=== PATIENT | male | born 1965 | race Caucasian/White ===

== ENCOUNTER 2023-05-04 12:03 | Outpatient (REF) | payer OTHER, SELFPAY ==
[2023-05-04 13:21] LABS: Alanine Aminotransferase 18 U/L (0-40); Albumin Level 3.6 g/dL (3.5-5.0); Alkaline Phosphatase 116 U/L (39-117); Anion Gap 14 (12-20); Aspartate Amino Transferase 26 U/L (5-37); Bilirubin Total 0.9 mg/dL (0.0-1.0); Blood Urea Nitrogen 15 mg/dL (9-16); Calcium 8.9 mg/dL (8.4-10.2); Carbon Dioxide 22 mmol/L (22-29); Chloride 102 mmol/L (96-108); Cholesterol 143 mg/dL; Estimated Glomerular Filt Rate > 60; Glucose Fasting 93 mg/dL (60-99); HDL Cholesterol 33 mg/dL; LDL Cholesterol Calculated 93 mg/dl; Potassium 4.2 mmol/L (3.3-5.1); Sodium 134 mmol/L (135-145); Total Protein 8.6 g/dL (6.5-8.0); Triglycerides 85 mg/dL
[2023-05-04 13:24] LABS: Estimated Average Glucose 100 mg/dL; Hemoglobin A1c % 5.1 %
[2023-05-04 13:36] LABS: Thyroid Stimulating Hormone 0.75 uIU/mL (0.32-4.0)
== END 2023-05-04 12:04 | disposition home or self-care (01) ==
LOC: HO.LAB 12:03
PROVIDERS: PCP Internal Medicine; Visit Provider Internal Medicine
DX: R73.9 Hyperglycemia, unspecified (principal); E03.9 Hypothyroidism, unspecified; N28.9 Disorder of kidney and ureter, unspecified; E78.5 Hyperlipidemia, unspecified
CPT/HCPCS: 36415; 80053; 80061; 83036; 84443

== ENCOUNTER 2023-07-19 11:31 | Outpatient (AMB) | payer OTHER, SELFPAY ==
[2023-07-19 11:33] VITALS: BP 180/120; PULSE 60; O2SAT 96; BMI 39.5
--- NOTE | 2023-07-19 11:33 | MHC.PC.OV ---
Vital Signs 07/19/23 11:33 Height 5 ft 7 in Weight 252 lb BMI 39.5 BP 180/120 H Blood Pressure Location Lt brachial Position Sitting Pulse 60 Pulse Source Pulse Oximeter Pulse Oximetry (%) 96 Oxygen Delivery Method Room Air Intake Visit Reasons: cellulitis Circuits Engineer: Not Required per policy Allergies No Known Allergies Allergy (Verified 07/19/23 11:34) Medication List - Last Reconciled 07/20/23 by Heri Greenfield MD hydrochlorothiazide 12.5 mg PO DAILY Tobacco use date assessed: 05/18/23 Dental Screening Dental Screen Date: 07/19/23 Did you have a dental visit in the last 12 months?: No Did you have a dental problem in the last 6 months where you did not have access to dental care?: No Was dental information given to patient?: Patient declined HPI cellulitis HPI Details HTN on no rx PFSH Surgical History No pertinent past surgical history Family History Father CVD (cardiovascular disease) Mother Diabetes Family/Other Asthma Seizure disorder CAD (coronary artery disease) Social History Housing: House Alcohol intake: never Patient Tobacco Use Status: Never used Tobacco e-Cigarette/Vaping Use: Never Used Second Hand Smoke Exposure: No service: No Current occupational status: disabled Cognitive needs: Yes (wheelchair) Hearing needs: No Vision needs: Yes (glasses) Questionnaire PHQ-9 Over the last 2 weeks, how often have you been bothered by any of the following problems? 1. Little interest or pleasure in doing things: not at all 2. Feeling down, depressed, or hopeless: not at all 3. Trouble falling or staying asleep, or sleeping too much: not at all 4. Feeling tired or having little energy: not at all 5. Poor appetite or overeating: not at all 6. Feeling bad about yourself - or that you are a failure or have let yourself or your family down: not at all 7. Trouble concentrating on things, such as reading the newspaper or watching television: not at all 8. Moving or speaking so slowly that other people could have noticed. Or the opposite - being so fidgety or restless that you have been moving around a lot more than usual: not at all 9. Thoughts that you would be better off or of hurting yourself in some way: not at all Total score: 0 Depression Screening Interpretation: Negative Source: Developed by Drs. Padilla Phan, Deanna Tobin, Samuel Platt and colleagues, with an educational isabel from [employer]. Thrive Questionnaire Date Thrive assessed: 05/18/23 Currently or been in a relationship where the following occur: no concerns reported AUDIT C Alcohol Use Questionnaire (AUDIT-C) 1. How often do you have a drink containing alcohol?: Never Total Score: 0 RENE-7 AMB Questionnaire RENE-7 Date RENE - 7 assessed: 05/18/23 Source: Developed by Drs. Padilla Phan, Deanna Tobin, Samuel Platt and colleagues, with an educational isabel from [employer]. Review of Systems Const Denies chills, Denies headache(s) and Denies weight loss ENT Denies headache(s) Card Denies chest pain, Denies syncope, Denies irregular heart rhythm and Denies dyspnea Resp Denies chest congestion, Denies cough and Denies dyspnea GI Denies abdominal pain, Denies change in stool character, Denies nausea and Denies vomiting Musc Denies deformity and Denies joint swelling Neuro Denies syncope and Denies headache(s) Physical exam (Primary Care) Vital Signs: Last Vital Signs Pulse 60 07/19/23 11:33 BP 180/120 H 07/19/23 11:33 Pulse Ox 96 07/19/23 11:33 Oxygen Delivery Method Room Air 07/19/23 11:33 BMI result Body Mass Index 39.5 Tobacco/Smoking Status: Tobacco use Status Tobacco use date assessed 05/18/23 07/19/23 11:39 Patient Tobacco Use Status Never used Tobacco 07/19/23 11:39 e-Cigarette/Vaping Use Never Used 07/19/23 11:39 PHQ-9: PHQ-9 Score PHQ-9: Total score 0 07/20/23 12:16 Depression Screening Interpretation: Negative Thrive Assessment: Date of Thrive Assessment Date Thrive assessed 05/18/23 07/19/23 11:39 Currently or been in a relationship where the following occur: no concerns reported Const General: cooperative, comfortable and no acute distress Resp Effort & Inspection: normal respiratory effort Auscultation: clear to auscultation bilaterally Percussion: percussion normal Cardio Jugular venous distension: no JVD Rate: regular rate Rhythm: regular rhythm GI Inspection: Yes normal to inspection Assessment and Plan Assessment & Plan (1) Hypertension: Code(s): I10 - Essential (primary) hypertension Plan: start rx Medications: New hydrochlorothiazide 12.5 mg PO DAILY 90 tabs 3RF Coding Level of Care Code Est Pt Level 3 (22436) Diagnoses Hypertension I10
== END 2023-07-19 11:47 | disposition home or self-care (01) ==
PROVIDERS: PCP Internal Medicine; Visit Provider Internal Medicine
DX: I10 Essential (primary) hypertension (principal)
CPT/HCPCS: 99213

== ENCOUNTER 2023-10-19 13:11 | Outpatient (AMB) | payer OTHER, SELFPAY ==
[2023-10-19 13:13] VITALS: BP 180/109; PULSE 73; O2SAT 96; BMI 41.5
--- NOTE | 2023-10-19 13:13 | A.OFFPC_ITS ---
Vital Signs 10/19/23 13:13 Height 5 ft 7 in Weight 265 lb BMI 41.5 BP 180/109 H Blood Pressure Location Lt brachial Position Sitting Pulse 73 Pulse Source Pulse Oximeter Pulse Oximetry (%) 96 Oxygen Delivery Method Room Air Intake Visit Reasons: 3mth f/u Instructional Technology Director Required: No Sulky Driver: Not Required per policy Accompanied by: Self / Same As Patient Allergies No Known Allergies Allergy (Verified 10/19/23 13:13) Medication List - Last Reconciled 10/19/23 by Heri Greenfield MD hydrochlorothiazide 12.5 mg PO DAILY Tobacco use date assessed: 05/18/23 Dental Screening Dental Screen Date: 10/19/23 Did you have a dental visit in the last 12 months?: Yes Did you have a dental problem in the last 6 months where you did not have access to dental care?: No Was dental information given to patient?: Patient has dentist HPI 3mth f/u 2 HPI Details BP high; compliant PFSH Surgical History No pertinent past surgical history Family History Father CVD (cardiovascular disease) Mother Diabetes Family/Other Asthma Seizure disorder CAD (coronary artery disease) Social History Housing: House Alcohol intake: never Patient Tobacco Use Status: Never used Tobacco e-Cigarette/Vaping Use: Never Used Second Hand Smoke Exposure: No service: No Current occupational status: disabled Cognitive needs: Yes (wheelchair) Hearing needs: No Vision needs: Yes (glasses) Questionnaire Thrive Questionnaire Date Thrive assessed: 05/18/23 RENE-7 AMB Questionnaire RENE-7 Date RENE - 7 assessed: 05/18/23 Source: Developed by Drs. Padilla Phan, Deanna Tobin, Samuel Platt and colleagues, with an educational isabel from [employer]. Review of Systems Const Denies chills, Denies headache(s) and Denies weight loss ENT Denies headache(s) Card Denies chest pain, Denies syncope, Denies irregular heart rhythm and Denies dyspnea Resp Denies chest congestion, Denies cough and Denies dyspnea GI Denies abdominal pain, Denies change in stool character, Denies nausea and Denies vomiting Musc Denies deformity and Denies joint swelling Neuro Denies syncope and Denies headache(s) Physical exam (Primary Care) Vital Signs: Last Vital Signs Pulse 73 10/19/23 13:13 BP 180/109 H 10/19/23 13:13 Pulse Ox 96 10/19/23 13:13 Oxygen Delivery Method Room Air 10/19/23 13:13 BMI result Body Mass Index 41.5 Tobacco/Smoking Status: Tobacco use Status Tobacco use date assessed 05/18/23 10/19/23 13:14 Patient Tobacco Use Status Never used Tobacco 10/19/23 13:14 e-Cigarette/Vaping Use Never Used 10/19/23 13:14 Thrive Assessment: Date of Thrive Assessment Date Thrive assessed 05/18/23 10/19/23 13:14 Const General: cooperative, comfortable, no acute distress and alert Neck Neck: Yes no lymphadenopathy Thyroid: Thyroid normal Resp Effort & Inspection: normal respiratory effort Auscultation: clear to auscultation bilaterally Percussion: percussion normal Cardio Jugular venous distension: no JVD Palpation: normal PMI Rate: regular rate Rhythm: regular rhythm Heart sounds: S1 normal heart sound present and S2 normal heart sound present GI Inspection: Yes normal to inspection Palpation (GI): No hepatosplenomegaly present Skin General skin exam: no rashes or lesions noted Extrem General: Yes no clubbing, cyanosis or edema Assessment and Plan Assessment & Plan (1) Hypertension: Code(s): I10 - Essential (primary) hypertension Plan: add rx Medications: New lisinopril 10 mg PO DAILY 60 tabs 8RF Coding Level of Care Code Est Pt Level 3 (10075) Diagnoses Hypertension I10
== END 2023-10-19 13:29 | disposition home or self-care (01) ==
PROVIDERS: PCP Internal Medicine; Visit Provider Internal Medicine
DX: I10 Essential (primary) hypertension (principal)
CPT/HCPCS: 99213

== ENCOUNTER 2024-01-18 12:49 | Outpatient (AMB) | payer OTHER, SELFPAY ==
[2024-01-18 12:51] VITALS: BP 186/120; PULSE 86; O2SAT 88; BMI 45.4
--- NOTE | 2024-01-18 12:51 | A.OFFPC_ITS ---
Vital Signs 01/18/24 12:51 Height 5 ft 7 in Weight 290 lb BMI 45.4 BP 186/120 H Blood Pressure Location Lt brachial Position Sitting Pulse 86 Pulse Source Pulse Oximeter Pulse Oximetry (%) 88 L Oxygen Delivery Method Room Air Intake Visit Reasons: 3mth f/u General Internist And Physician Leader Required: No Contractor Field Hauling: Not Required per policy Accompanied by: Self / Same As Patient Allergies No Known Allergies Allergy (Verified 01/18/24 12:51) Medication List - Last Reconciled 01/18/24 by Heri Greenfield MD hydrochlorothiazide 12.5 mg PO DAILY lisinopril 10 mg PO DAILY Tobacco use date assessed: 01/18/24 Dental Screening Dental Screen Date: 01/18/24 Did you have a dental visit in the last 12 months?: Yes Did you have a dental problem in the last 6 months where you did not have access to dental care?: No Was dental information given to patient?: Patient has dentist HPI 3mth f/u HPI Details HTN; stopped his rx a month ago PFSH Surgical History No pertinent past surgical history Family History Father CVD (cardiovascular disease) Mother Diabetes Family/Other Asthma Seizure disorder CAD (coronary artery disease) Social History Housing: House Alcohol intake: never Patient Tobacco Use Status: Never used Tobacco e-Cigarette/Vaping Use: Never Used Second Hand Smoke Exposure: No service: No Current occupational status: disabled Cognitive needs: Yes (wheelchair) Hearing needs: No Vision needs: Yes (glasses) Questionnaire PHQ-9 Over the last 2 weeks, how often have you been bothered by any of the following problems? 1. Little interest or pleasure in doing things: not at all 2. Feeling down, depressed, or hopeless: not at all 3. Trouble falling or staying asleep, or sleeping too much: not at all 4. Feeling tired or having little energy: not at all 5. Poor appetite or overeating: not at all 6. Feeling bad about yourself - or that you are a failure or have let yourself or your family down: not at all 7. Trouble concentrating on things, such as reading the newspaper or watching television: not at all 8. Moving or speaking so slowly that other people could have noticed. Or the opposite - being so fidgety or restless that you have been moving around a lot more than usual: not at all 9. Thoughts that you would be better off or of hurting yourself in some way: not at all Total score: 0 Depression Screening Interpretation: Negative Depression Screening Done: Yes [id number] - PHQ-9 Billing: Yes Source: Developed by Drs. Padilla Phan, Deanna Tobin, Samuel Platt and colleagues, with an educational isabel from [employer]. Thrive Questionnaire Date Thrive assessed: 01/18/24 I am a: Patient What is your living situation today?: I have a steady place to live Within the past 12 months, did the food you bought not last and you didn't have the money to get more?: Never true Within the past 12 months, did you worry whether your food would run out before you got money to buy more?: Never true Do you have trouble paying for medicines?: No Do you have trouble getting transportation to medical appointments?: No Do you have trouble paying your heating and electricity bill?: No Do you have trouble taking care of your child, family member or friend?: No Do you have trouble with day-to-day activities such as bathing, preparing meals, shopping, managing finances, etc.?: No Are you currently unemployed and looking for a job?: No Are you interested in more education?: No Please select the resources that you would like help with: None THRIVE Score: 0 AUDIT C Alcohol Use Questionnaire (AUDIT-C) 1. How often do you have a drink containing alcohol?: Never Total Score: 0 RENE-7 AMB Questionnaire RENE-7 Date RENE - 7 assessed: 01/18/24 Feeling nervous, anxious, or on edge: 0 = Not at all Not being able to stop or control worryin = Not at all Worrying too much about different things: 0 = Not at all Trouble relaxin = Not at all Being so restless that it is hard to sit still: 0 = Not at all Becoming easily annoyed or irritable: 0 = Not at all Feeling afraid as if something awful might happen: 0 = Not at all Total RENE-7 score (0-4 normal; 5-9 mild; 10-14 moderate; 15-21 severe): 0 Source: Developed by Drs. Padilla Phan, Deanna Tobin, Samuel Platt and colleagues, with an educational isabel from [employer]. RENE-7 Assessment Billing RENE-7 Assessment Tool: RENE-7 Assessment 41208 Review of Systems Const Denies chills, Denies headache(s) and Denies weight loss ENT Denies headache(s) Card Denies chest pain, Denies syncope, Denies irregular heart rhythm and Denies dyspnea Resp Denies chest congestion, Denies cough and Denies dyspnea GI Denies abdominal pain, Denies change in stool character, Denies nausea and Denies vomiting Musc Denies deformity and Denies joint swelling Neuro Denies syncope and Denies headache(s) Physical exam (Primary Care) Vital Signs: Last Vital Signs Pulse 86 01/18/24 12:51 BP 186/120 H 01/18/24 12:51 Pulse Ox 88 L 01/18/24 12:51 Oxygen Delivery Method Room Air 01/18/24 12:51 BMI result Body Mass Index 45.4 Tobacco/Smoking Status: Tobacco use Status Tobacco use date assessed 01/18/24 01/18/24 12:52 Patient Tobacco Use Status Never used Tobacco 01/18/24 12:52 e-Cigarette/Vaping Use Never Used 01/18/24 12:52 PHQ-9: PHQ-9 Score PHQ-9: Total score 0 01/18/24 12:52 Depression Screening Interpretation: Negative Thrive Assessment: Date of Thrive Assessment Date Thrive assessed 01/18/24 01/18/24 12:52 Const General: cooperative, comfortable, no acute distress and alert Neck Neck: Yes no lymphadenopathy Thyroid: Thyroid normal Resp Effort & Inspection: normal respiratory effort Auscultation: clear to auscultation bilaterally Percussion: percussion normal Cardio Jugular venous distension: no JVD Palpation: normal PMI Rate: regular rate Rhythm: regular rhythm Heart sounds: S1 normal heart sound present and S2 normal heart sound present GI Inspection: Yes normal to inspection Palpation (GI): No hepatosplenomegaly present Skin General skin exam: no rashes or lesions noted Extrem General: Yes no clubbing, cyanosis or edema Assessment and Plan Assessment & Plan (1) Hypertension: Code(s): I10 - Essential (primary) hypertension Plan: restart rx and f/u in 2 weeks Medications: Refilled hydrochlorothiazide 12.5 mg PO DAILY 90 tabs 3RF lisinopril 10 mg PO DAILY 60 tabs 8RF Coding Level of Care Code Est Pt Level 3 (88817) Diagnoses Hypertension I10 Additional Codes RENE-7 Assessment Billing - RENE-7 Assessment Tool: RENE-7 Assessment 94401 ([id number])
== END 2024-01-18 13:09 | disposition home or self-care (01) ==
PROVIDERS: PCP Internal Medicine; Visit Provider Internal Medicine
DX: I10 Essential (primary) hypertension (principal); E66.01 Morbid (severe) obesity due to excess calories; Z68.42 Body mass index [BMI] 45.0-49.9, adult
CPT/HCPCS: 99213

== ENCOUNTER 2024-06-06 12:34 | Outpatient (AMB) | payer OTHER, SELFPAY ==
--- NOTE | 2024-06-06 12:49 | MHC.PC.OV ---
Vital Signs 06/06/24 12:50 Height 5 ft 7 in Weight 270 lb 2 oz BMI 42.3 BP 144/100 H Blood Pressure Location Lt brachial Position Sitting Pulse 55 Pulse Source Pulse Oximeter Pulse Oximetry (%) 99 Oxygen Delivery Method Room Air Intake Visit Reasons: PE Intake Note: Patient is here today for a physical. Leather Fitter Required: No Accompanied by: Self / Same As Patient Allergies No Known Allergies Allergy (Verified 06/06/24 12:50) Medication List - Last Reconciled 06/06/24 by Heri Greenfield MD hydrochlorothiazide 12.5 mg PO DAILY lisinopril 10 mg PO DAILY lisinopril 20 mg PO DAILY silver sulfadiazine 1% (Silvadene) 1 appl topical BID Tobacco use date assessed: 01/18/24 Dental Screening Dental Screen Date: 01/18/24 HPI PE HPI Details N on rx PFSH Surgical History No pertinent past surgical history Family History Father CVD (cardiovascular disease) Mother Diabetes Family/Other Asthma Seizure disorder CAD (coronary artery disease) Social History Housing: House Alcohol intake: never Patient Tobacco Use Status: Never used Tobacco e-Cigarette/Vaping Use: Never Used Second Hand Smoke Exposure: No service: No Current occupational status: disabled Cognitive needs: Yes (wheelchair) Hearing needs: No Vision needs: Yes (glasses) Questionnaire Thrive Questionnaire Date Thrive assessed: 01/18/24 RENE-7 AMB Questionnaire RENE-7 Date RENE - 7 assessed: 01/18/24 Source: Developed by Drs. Padilla Phan, Deanna Tobin, Samuel Platt and colleagues, with an educational isabel from [employer]. Review of Systems Const Denies chills, Denies fatigue, Denies headache(s) and Denies weight loss Eyes Denies change in vision, Denies diplopia and Denies eye pain ENT Denies vertigo, Denies dizziness, Denies headache(s) and Denies nasal discharge Card Denies chest pain, Denies rapid heart rate and Denies dyspnea on exertion Resp Denies chest congestion, Denies cough, Denies pain with cough and Denies dyspnea on exertion GI Denies abdominal pain, Denies hematochezia and Denies change in bowel habits Musc Denies myalgias, Denies arthralgias and Denies joint swelling Skin/Breast Denies lesions and Denies unusual bruising Neuro Denies vertigo, Denies dizziness, Denies headache(s) and Denies focal weakness Endo Denies fatigue Physical exam (Primary Care) Vital Signs: Last Vital Signs Pulse 55 06/06/24 12:50 BP 144/100 H 06/06/24 12:50 Pulse Ox 99 06/06/24 12:50 Oxygen Delivery Method Room Air 06/06/24 12:50 BMI result Body Mass Index 42.3 Tobacco/Smoking Status: Tobacco use Status Tobacco use date assessed 01/18/24 06/06/24 12:51 Patient Tobacco Use Status Never used Tobacco 06/06/24 12:51 e-Cigarette/Vaping Use Never Used 06/06/24 12:51 Thrive Assessment: Date of Thrive Assessment Date Thrive assessed 01/18/24 06/06/24 12:51 Const General: cooperative, healthy appearing and no acute distress Orientation/consciousness: oriented to person, oriented to place and oriented to time HENMT Head: Yes normal to inspection, Yes normocephalic and Yes atraumatic Mouth: Normal oral and palatal mucosa present and tongue normal Throat: Yes posterior oropharynx normal and Yes uvula midline Eyes General: appearance normal, both eyes and all related structures Neck Neck: Yes normal visual inspection, Yes full ROM and Yes no lymphadenopathy Thyroid: Thyroid normal Carotids: normal carotid upstroke Chest Chest palpation & inspection: normal inspection of the chest Resp Effort & Inspection: normal respiratory effort and able to speak in complete sentences Auscultation: clear to auscultation bilaterally Cardio Jugular venous distension: no JVD Palpation: normal PMI Rate: regular rate Rhythm: regular rhythm Heart sounds: S1 normal heart sound present and S2 normal heart sound present GI Inspection: Yes normal to inspection Palpation (GI): Soft to palpation and No hepatosplenomegaly present Auscultation: normal bowel sounds General: Yes no CVA tenderness Back/Spine/Pelvis Back: no CVA tenderness Skin General skin exam: no rashes or lesions noted Neuro General: oriented to person, oriented to place and oriented to time Extrem General: Yes normal to inspection and Yes full ROM Assessment and Plan Assessment & Plan (1) Physical exam: Code(s): Z00.00 - Encounter for general adult medical examination without abnormal findings Plan: do labs (2) Hypertension: Code(s): I10 - Essential (primary) hypertension Plan: increase rx Orders: Orders Lipid Panel Today Z13.220 - Encounter for screening for lipoid disorders Thyroid Stimulating Hormone Today Z13.29 - Encounter for screening for other suspected endocrine disorder Complete Blood Count Auto Diff Today Z13.0 - Encounter for screening for diseases of the blood and blood-forming organs and certain disorders involving the immune mechanism Comprehensive [place]. Panel Fast Today Z13.9 - Encounter for screening, unspecified Medications: New lisinopril 20 mg PO DAILY 90 tabs 3RF silver sulfadiazine 1% (Silvadene) apply a 1.5 mm thickness 1 appl topical BID 50 grams 3RF Coding Level of Care Code Est Pt Prev Care 40-64y(92626) Diagnoses Physical exam Z00.00 Hypertension I10
[2024-06-06 12:50] VITALS: BP 144/100; PULSE 55; O2SAT 99; BMI 42.3
== END 2024-06-06 13:03 | disposition home or self-care (01) ==
PROVIDERS: PCP Internal Medicine; Visit Provider Internal Medicine
DX: Z00.00 Encounter for general adult medical examination without abnormal findings (principal); I10 Essential (primary) hypertension
CPT/HCPCS: 99396

== ENCOUNTER 2024-07-08 13:25 | Outpatient (AMB) | payer OTHER, SELFPAY ==
[2024-07-08 13:26] VITALS: BP 148/82; PULSE 79; O2SAT 98; BMI 42.6
--- NOTE | 2024-07-08 13:26 | A.OFFPC_ITS ---
Vital Signs 07/08/24 13:26 Height 5 ft 7 in Weight 272 lb BMI 42.6 BP 148/82 H Blood Pressure Location Lt brachial Position Sitting Pulse 79 Pulse Source Pulse Oximeter Pulse Oximetry (%) 98 Oxygen Delivery Method Room Air Intake Visit Reasons: 1mth f/u Allergies No Known Allergies Allergy (Verified 07/08/24 13:26) Medication List - Last Reconciled 07/08/24 by Heri Greenfield MD hydrochlorothiazide 12.5 mg PO DAILY lisinopril 20 mg PO DAILY Tobacco use date assessed: 01/18/24 Dental Screening Dental Screen Date: 01/18/24 HPI 1mth f/u HPI Details HTN on Rx; compliant; doing well PFSH Surgical History No pertinent past surgical history Family History Father CVD (cardiovascular disease) Mother Diabetes Family/Other Asthma Seizure disorder CAD (coronary artery disease) Social History Housing: House Alcohol intake: never Patient Tobacco Use Status: Never used Tobacco e-Cigarette/Vaping Use: Never Used Second Hand Smoke Exposure: No service: No Current occupational status: disabled Cognitive needs: Yes (wheelchair) Hearing needs: No Vision needs: Yes (glasses) Questionnaire PHQ-9 Over the last 2 weeks, how often have you been bothered by any of the following problems? 1. Little interest or pleasure in doing things: not at all 2. Feeling down, depressed, or hopeless: not at all 3. Trouble falling or staying asleep, or sleeping too much: not at all 4. Feeling tired or having little energy: not at all 5. Poor appetite or overeating: not at all 6. Feeling bad about yourself - or that you are a failure or have let yourself or your family down: not at all 7. Trouble concentrating on things, such as reading the newspaper or watching television: not at all 8. Moving or speaking so slowly that other people could have noticed. Or the opposite - being so fidgety or restless that you have been moving around a lot more than usual: not at all 9. Thoughts that you would be better off or of hurting yourself in some way: not at all Total score: 0 Depression Screening Interpretation: Negative Depression Screening Done: Yes 18421 - PHQ-9 Billing: Yes Source: Developed by Drs. Padilla Phan, Deanna Tobin, Samuel Platt and colleagues, with an educational isabel from [employer]. Thrive Questionnaire Date Thrive assessed: 01/18/24 AUDIT C Alcohol Use Questionnaire (AUDIT-C) 1. How often do you have a drink containing alcohol?: Never Total Score: 0 RENE-7 AMB Questionnaire RENE-7 Date RENE - 7 assessed: 01/18/24 Source: Developed by Drs. Padilla Phan, Deanna Tobin, Samuel Platt and colleagues, with an educational isabel from [employer]. Review of Systems Const Denies chills, Denies headache(s) and Denies weight loss ENT Denies headache(s) Card Denies chest pain, Denies syncope, Denies irregular heart rhythm and Denies dy spnea Resp Denies chest congestion, Denies cough and Denies dyspnea GI Denies abdominal pain, Denies change in stool character, Denies nausea and Emanuel es vomiting Musc Denies deformity and Denies joint swelling Neuro Denies syncope and Denies headache(s) Physical exam (Primary Care) Vital Signs: Last Vital Signs Pulse 79 07/08/24 13:26 BP 148/82 H 07/08/24 13:26 Pulse Ox 98 07/08/24 13:26 Oxygen Delivery Method Room Air 07/08/24 13:26 BMI result Body Mass Index 42.6 Tobacco/Smoking Status: Tobacco use Status Tobacco use date assessed 01/18/24 07/08/24 13:26 Patient Tobacco Use Status Never used Tobacco 07/08/24 13:26 e-Cigarette/Vaping Use Never Used 07/08/24 13:26 PHQ-9: PHQ-9 Score PHQ-9: Total score 0 07/08/24 13:33 Depression Screening Interpretation: Negative Thrive Assessment: Date of Thrive Assessment Date Thrive assessed 01/18/24 07/08/24 13:26 Const General: cooperative, comfortable, no acute distress and alert Neck Neck: Yes no lymphadenopathy Thyroid: Thyroid normal Resp Effort & Inspection: normal respiratory effort Auscultation: clear to auscultation bilaterally Percussion: percussion normal Cardio Jugular venous distension: no JVD Palpation: normal PMI Rate: regular rate Rhythm: regular rhythm Heart sounds: S1 normal heart sound present and S2 normal heart sound present GI Inspection: Yes normal to inspection Palpation (GI): No hepatosplenomegaly present Skin General skin exam: no rashes or lesions noted Extrem General: Yes no clubbing, cyanosis or edema Assessment and Plan Assessment & Plan (1) Hypertension: Code(s): I10 - Essential (primary) hypertension Plan: stable; same rx Coding Level of Care Code Est Pt Level 3 (89222) Diagnoses Hypertension I10
== END 2024-07-08 13:50 | disposition home or self-care (01) ==
PROVIDERS: PCP Internal Medicine; Visit Provider Internal Medicine
DX: I10 Essential (primary) hypertension (principal)
CPT/HCPCS: 99213

== ENCOUNTER 2024-10-08 13:16 | Outpatient (AMB) | payer OTHER, SELFPAY ==
[2024-10-08 13:17] VITALS: BP 168/92; PULSE 68; O2SAT 95; BMI 46.2
--- NOTE | 2024-10-08 13:17 | A.OFFPC_ITS ---
Vital Signs 10/08/24 13:17 Height 5 ft 7 in Weight 295 lb BMI 46.2 BP 168/92 H Blood Pressure Location Lt brachial Position Sitting Pulse 68 Pulse Source Pulse Oximeter Pulse Oximetry (%) 95 Oxygen Delivery Method Room Air Intake Visit Reasons: 3 month f/u Allergies No Known Allergies Allergy (Verified 10/08/24 13:18) Tobacco use date assessed: 01/18/24 Dental Screening Dental Screen Date: 01/18/24 HPI 3 month f/u HPI Details hypertension; non-compliant with meds [facility] Surgical History No pertinent past surgical history Family History Father CVD (cardiovascular disease) Mother Diabetes Family/Other Asthma Seizure disorder CAD (coronary artery disease) Social History Housing: House Alcohol intake: never Patient Tobacco Use Status: Never used Tobacco Tobacco use type: Cigarette e-Cigarette/Vaping Use: Never Used Second Hand Smoke Exposure: No service: No Current occupational status: disabled Cognitive needs: Yes (wheelchair) Hearing needs: No Vision needs: Yes (glasses) Questionnaire PHQ-9 Over the last 2 weeks, how often have you been bothered by any of the following problems? 1. Little interest or pleasure in doing things: not at all 2. Feeling down, depressed, or hopeless: not at all 3. Trouble falling or staying asleep, or sleeping too much: not at all 4. Feeling tired or having little energy: not at all 5. Poor appetite or overeating: not at all 6. Feeling bad about yourself - or that you are a failure or have let yourself or your family down: not at all 7. Trouble concentrating on things, such as reading the newspaper or watching television: not at all 8. Moving or speaking so slowly that other people could have noticed. Or the opposite - being so fidgety or restless that you have been moving around a lot more than usual: not at all 9. Thoughts that you would be better off or of hurting yourself in some way: not at all Total score: 0 Depression Screening Interpretation: Negative Depression Screening Done: Yes 38787 - PHQ-9 Billing: Yes Source: Developed by Drs. Padilla Phan, Deanna Tobin, Samuel Platt and colleagues, with an educational isabel from [employer] Thrive Questionnaire Date Thrive assessed: 01/18/24 AUDIT C Alcohol Use Questionnaire (AUDIT-C) 1. How often do you have a drink containing alcohol?: Never Total Score: 0 RENE-7 AMB Questionnaire RENE-7 Date RENE - 7 assessed: 01/18/24 Source: Developed by Drs. Padilla Phan, Deanna Tobin, Samuel Platt and colleagues, with an educational isabel from [employer] Review of Systems Const Denies chills, Denies headache(s) and Denies weight loss ENT Denies headache(s) Card Denies chest pain, Denies syncope, Denies irregular heart rhythm and Denies dyspnea Resp Denies chest congestion, Denies cough and Denies dyspnea GI Denies abdominal pain, Denies change in stool character, Denies nausea and Denies vomiting Musc Denies deformity and Denies joint swelling Neuro Denies syncope and Denies headache(s) Physical exam (Primary Care) Vital Signs: Last Vital Signs Pulse 68 10/08/24 13:17 BP 168/92 H 10/08/24 13:17 Pulse Ox 95 10/08/24 13:17 Oxygen Delivery Method Room Air 10/08/24 13:17 BMI result Body Mass Index 46.2 Tobacco/Smoking Status: Tobacco use Status Tobacco use date assessed 01/18/24 10/08/24 13:24 Patient Tobacco Use Status Never used Tobacco 10/08/24 13:24 Tobacco use type Cigarette 10/08/24 13:24 e-Cigarette/Vaping Use Never Used 10/08/24 13:24 PHQ-9: PHQ-9 Score PHQ-9: Total score 0 10/08/24 13:24 Depression Screening Interpretation: Negative Thrive Assessment: Date of Thrive Assessment Date Thrive assessed 01/18/24 10/08/24 13:24 Const General: cooperative, comfortable, no acute distress and alert Neck Neck: Yes no lymphadenopathy Thyroid: Thyroid normal Resp Effort & Inspection: normal respiratory effort Auscultation: clear to auscultation bilaterally Percussion: percussion normal Cardio Jugular venous distension: no JVD Palpation: normal PMI Rate: regular rate Rhythm: regular rhythm Heart sounds: S1 normal heart sound present and S2 normal heart sound present GI Inspection: Yes normal to inspection Palpation (GI): No hepatosplenomegaly present Skin General skin exam: no rashes or lesions noted Extrem General: Yes no clubbing, cyanosis or edema Coding Level of Care Code Est Pt Level 3 (22787) Diagnoses Hypertension I10 Additional Codes PHQ-9 - 85881 - PHQ-9 Billing: Yes ([id number]) Assessment & Plan Assessment & Plan (1) Hypertension: Code(s): I10 - Essential (primary) hypertension Category: Medical Plan: improve med compliance
== END 2024-10-08 13:29 | disposition home or self-care (01) ==
PROVIDERS: PCP Internal Medicine; Visit Provider Internal Medicine
DX: I10 Essential (primary) hypertension (principal)

== ENCOUNTER → 2024-10-08 13:16 | Outpatient (BNVA) | payer OTHER, SELFPAY | PROVIDERS: PCP Internal Medicine; Visit Provider Internal Medicine | DX: I10 Essential (primary) hypertension (principal) | CPT/HCPCS: 96127; 99212 ==

== ENCOUNTER 2025-01-24 10:52 | Outpatient (AMB) | payer OTHER, SELFPAY ==
[2025-01-24 11:01] VITALS: BP 140/80; PULSE 122; TEMP 36.2; O2SAT 99; BMI 45.6
--- NOTE | 2025-01-24 11:01 | MHC.PC.OV ---
Vital Signs 01/24/25 11:01 Height 5 ft 7 in Weight 291 lb 1 oz BMI 45.6 BP 140/80 H Blood Pressure Location Lt brachial Position Sitting Pulse 122 H Pulse Source Pulse Oximeter Temp 97.1 F Temp Source Temporal Artery Scan Pulse Oximetry (%) 99 Oxygen Delivery Method Room Air Intake Visit Reasons: 3 month f/u - see comments Intake Note: Patient is here to follow up on HTN. Csr Retail Required: No Airways Control Specialist: Not Required per policy Accompanied by: Self / Same As Patient Allergies No Known Allergies Allergy (Verified 01/24/25 11:03) Medication List - Last Reconciled 01/27/25 by Heri Greenfield MD No Known Home Meds Tobacco use date assessed: 01/24/25 Dental Screening Dental Screen Date: 01/24/25 Did you have a dental visit in the last 12 months?: No Did you have a dental problem in the last 6 months where you did not have access to dental care?: No Was dental information given to patient?: No HPI 3 month f/u - see comments HPI Details HTN on no rx at present [facility] Surgical History No pertinent past surgical history Family History Father CVD (cardiovascular disease) Mother Diabetes Family/Other Asthma Seizure disorder CAD (coronary artery disease) Social History Housing: House Alcohol intake: never Patient Tobacco Use Status: Never used Tobacco Tobacco use type: Cigarette e-Cigarette/Vaping Use: Never Used Second Hand Smoke Exposure: No service: No Current occupational status: disabled Cognitive needs: Yes (wheelchair) Hearing needs: No Vision needs: Yes (glasses) Questionnaire PHQ-9 Over the last 2 weeks, how often have you been bothered by any of the following problems? 1. Little interest or pleasure in doing things: not at all 2. Feeling down, depressed, or hopeless: not at all 3. Trouble falling or staying asleep, or sleeping too much: not at all 4. Feeling tired or having little energy: not at all 5. Poor appetite or overeating: not at all 6. Feeling bad about yourself - or that you are a failure or have let yourself or your family down: not at all 7. Trouble concentrating on things, such as reading the newspaper or watching television: not at all 8. Moving or speaking so slowly that other people could have noticed. Or the opposite - being so fidgety or restless that you have been moving around a lot more than usual: not at all 9. Thoughts that you would be better off or of hurting yourself in some way: not at all Total score: 0 Depression Screening Interpretation: Negative Depression Screening Done: Yes Source: Developed by Drs. Padilla Phan, Deanna Tobin, Samuel Platt and colleagues, with an educational isabel from [employer]. Thrive Questionnaire Date Thrive assessed: 01/24/25 I am a: Patient What is your living situation today?: I have a steady place to live Within the past 12 months, did the food you bought not last and you didn't have the money to get more?: Never true Within the past 12 months, did you worry whether your food would run out before you got money to buy more?: Never true Do you have trouble paying for medicines?: No Do you have trouble getting transportation to medical appointments?: No Do you have trouble paying your heating and electricity bill?: No Do you have trouble taking care of your child, family member or friend?: No Do you have trouble with day-to-day activities such as bathing, preparing meals, shopping, managing finances, etc.?: No Are you currently unemployed and looking for a job?: No Are you interested in more education?: No Please select the resources that you would like help with: None Currently or been in a relationship where the following occur: No concerns reported THRIVE Score: 0 AUDIT C Alcohol Use Questionnaire (AUDIT-C) 1. How often do you have a drink containing alcohol?: Never Total Score: 0 RENE-7 AMB Questionnaire RENE-7 Date RENE - 7 assessed: 01/24/25 Feeling nervous, anxious, or on edge: 0 = Not at all Not being able to stop or control worryin = Not at all Worrying too much about different things: 0 = Not at all Trouble relaxin = Not at all Being so restless that it is hard to sit still: 0 = Not at all Becoming easily annoyed or irritable: 0 = Not at all Feeling afraid as if something awful might happen: 0 = Not at all Total RENE-7 score (0-4 normal; 5-9 mild; 10-14 moderate; 15-21 severe): 0 Source: Developed by Drs. Padilla Phan, Denana Tobin, Samuel Platt and colleagues, with an educational isabel from [employer]. Review of Systems Const Denies chills, Denies headache(s) and Denies weight loss ENT Denies headache(s) Card Denies chest pain, Denies syncope, Denies irregular heart rhythm and Denies dyspnea Resp Denies chest congestion, Denies cough and Denies dyspnea GI Denies abdominal pain, Denies change in stool character, Denies nausea and Denies vomiting Musc Denies deformity and Denies joint swelling Neuro Denies syncope and Denies headache(s) Physical exam (Primary Care) Vital Signs: Last Vital Signs Temp 97.1 F 01/24/25 11:01 Pulse 122 H 01/24/25 11:01 BP 140/80 H 01/24/25 11:01 Pulse Ox 99 01/24/25 11:01 Oxygen Delivery Method Room Air 01/24/25 11:01 BMI result Body Mass Index 45.6 Tobacco/Smoking Status: Tobacco use Status Tobacco use date assessed 01/24/25 01/24/25 11:08 Patient Tobacco Use Status Never used Tobacco 01/24/25 11:02 Tobacco use type Cigarette 01/24/25 11:02 e-Cigarette/Vaping Use Never Used 01/24/25 11:02 PHQ-9: PHQ-9 Score PHQ-9: Total score 0 01/24/25 11:08 Depression Screening Interpretation: Negative Thrive Assessment: Date of Thrive Assessment Date Thrive assessed 01/24/25 01/24/25 11:08 Currently or been in a relationship where the following occur: No concerns reported Const General: cooperative, comfortable, no acute distress and alert Neck Neck: Yes no lymphadenopathy Thyroid: Thyroid normal Resp Effort & Inspection: normal respiratory effort Auscultation: clear to auscultation bilaterally Percussion: percussion normal Cardio Jugular venous distension: no JVD Palpation: normal PMI Rate: regular rate Rhythm: regular rhythm Heart sounds: S1 normal heart sound present and S2 normal heart sound present GI Inspection: Yes normal to inspection Palpation (GI): No hepatosplenomegaly present Skin General skin exam: no rashes or lesions noted Extrem General: Yes no clubbing, cyanosis or edema Coding Level of Care Code Est Pt Level 3 (85753) Diagnoses Hypertension I10 Assessment & Plan Assessment & Plan (1) Hypertension: Code(s): I10 - Essential (primary) hypertension Category: Medical Plan: stable; cont to monitor
--- OUTSIDE RECORDS SUMMARY | 2025-01-24 12:25 | XMS_ITS | Clinical Summary ---
Author Organization [facility] ity Address [address] [place] [address] Care Team Providers Care Real Estate Consultant Name Role Phone Unavailable Primary Care Provider Unavailabl e Social History Tobacco Use Types Packs/Day Years Used Date Smoking Tobacco: Never Assessed Sex and Gender Information Value Date Recorded Sex Assigned at Not on file Legal Sex Male 7:27 PM EST Gender Identity Not on file Sexual Orientation Not on file Plan of Treatment Health Maintenance Due Date Last Done Comments DTaP,Tdap,and Td Vaccines (1 - Tdap) 1986 Hepatitis B Vaccines (1 of 3 - 19+ 3-dose series) 1986 Pneumococcal Vaccine: 50+ Ye ars (1 of 1 - PCV) 2017 Zoster Vaccines (1 of 2) 2017 Cholesterol Screening (Lipid Panel) 06/11/2024 Colorectal Cancer Screening: Colonoscopy 06/11/2024 Depression Screening 06/11/2024 HIV Screening 06/11/2024 Hepatitis C Screening 06/11/2024 Social Influencers of Health Screening 06/11/2024 COVID-19 Vaccine ( - 2023-2 5 season) 2024 Influenza Vaccine (#1) 2024 HIB Vaccines Aged Out No longer eligi ble based on patient's age to complete this topic HPV Vaccines Aged Out No longer eligi ble based on patient's age to complete this topic Hepatitis A Vaccines Aged Out No long er eligible based on patient's age to complete this topic IPV Vaccines Aged Out No longer eligi ble based on patient's age to complete this topic MMR Vaccines Aged Out No longer eligi ble based on patient's age to complete this topic Meningococcal ACWY Vaccine Aged Out N o longer eligible based on patient's age to complete this topic Meningococcal B Vacine Aged Out No lo nger eligible based on patient's age to complete this topic Pneumococcal Vaccine: Pediat rics (0 to 5 Years) and At-Risk Patients (6 to 64 Years) Aged Out No longer eligible b ased on patient's age to complete this topic RSV Immunization Patients Un sera 20 months Aged Out No longer eligible b ased on patient's age to complete this topic Varicella Vaccines Aged Out No longer eligible based on patient's age to complete this topic Advance Directives Documents on File Type Date Recorded Patient Supervisor Money Room Expl anation Health Care Decision (hx) 01/31/2024 AD AMARIS DIRECTIVE
== END 2025-01-24 11:15 | disposition home or self-care (01) ==
PROVIDERS: PCP Internal Medicine; Visit Provider Internal Medicine
DX: I10 Essential (primary) hypertension (principal)

== ENCOUNTER → 2025-01-24 10:52 | Outpatient (BNVA) | payer OTHER, SELFPAY | PROVIDERS: PCP Internal Medicine; Visit Provider Internal Medicine | DX: I10 Essential (primary) hypertension (principal) | CPT/HCPCS: 99212 ==

== ENCOUNTER 2025-07-11 13:45 | Outpatient (AMB) | payer OTHER, SELFPAY ==
--- OUTSIDE RECORDS SUMMARY | 2025-07-11 13:49 | XMS_ITS ---
Author Organization [facility] Care Team Providers Care Rn Observation Name Role Phone Marie Adler Unavailable Unavailable Noemy Larson Unavailable Unavailable Rylie Wing Unavailable Unavailable Nai Lowe Unavailable Unavailable Allergies and adverse reactions No Known Allergies Care Team Name Role Address Phone Organization Dates Noemy Larson PCP [address], [place], [address], [facility] (Office): [facility] 01/30/2024 - 05/06/2024 Marie Adler [address] [facility] [place] [address], [address], [place] (Office): [facility] 01/30/2024 - 05/06/2024 Rylie Wing [address] [facility], [address], [place] (Office): [facility] 01/30/2024 - 05/06/2024 Nai Lowe [address] [place] [address], [address], [place] (Office): [facility] 01/30/2024 - 05/06/2024 Immunizations Immunization Status Vaccine Details Vaccine Code CodeSystem Date Notes Influenza cancelled Influenza, split virus, trivalent, injectable, contains preservative 141 CVX created date: 02/16/2024 consent date: 02/16/2024 Educated by jason on 02/16/2024 DECLINED EDUCATION DONE ABOUT EFFICACY OF VACCINES, BENEFITS AND RISKs SARS-COV-2 (COVID-19 BOOSTER) cancelled SARS-COV-2 (COVID-19) vaccine, mRNA, spike protein, LNP, preservative free, 50 mcg/0.5 mL dose 312 CVX created date: 02/16/2024 consent date: 02/16/2024 Educated by jason on 02/16/2024 DECLINED EDUCATION DONE ABOUT THE EFFICACY OF THE VACCINES, BENIFITS AND RISKS Mental Status Section Date Assessment Total Score Description 05/06/2024 CAM 0 No delirium ind icated 02/05/2024 BIMS 13 cognitively int act CAM 0 No delirium ind icated PHQ-9 00 Problems Problem # Description Date of onset Resolved Date Code CodeSystem Concern Status 1 PRESSURE ULCER OF LEFT HIP, UNSTAGEABLE 02/22/[address] active 2 ACUTE KIDNEY FAILURE, UNSPECIFIED 01/30/[address] active 3 ACUTE PULMONARY EDEMA 01/30/[address] active 4 ACUTE RESPIRATORY FAILURE WITH HYPERCAPNIA 01/30/[address] active 5 ACUTE RESPIRATORY FAILURE WITH HYPOXIA 01/30/[address] active 6 ANEMIA, UNSPECIFIED 01/30/[address] active 7 CELLULITIS OF LEFT LOWER LIMB 01/30/[address] active 8 DIFFICULTY IN WALKING, NOT ELSEWHERE CLASSIFIED 01/30/[address] active 9 ESSENTIAL (PRIMARY) HYPERTENSION 01/30/[address] active 10 HEART FAILURE, UNSPECIFIED 01/30/[address] active 11 MORBID (SEVERE) OBESITY DUE TO EXCESS CALORIES 01/30/[address] active 12 NEED FOR ASSISTANCE WITH PERSONAL CARE 01/30/[address] active 13 NON-PRESSURE CHRONIC ULCER OF LEFT ANKLE WITH UNSPECIFIED SEVERITY 01/30/[address] active 14 NON-PRESSURE CHRONIC ULCER OF OTHER PART OF LEFT LOWER LEG WITH UNSPECIFIED SEVERITY 01/30/[address] active 15 OTHER ACIDOSIS 01/30/[address] active 16 PERIPHERAL VASCULAR DISEASE, UNSPECIFIED 01/30/[address] active 17 PRESSURE ULCER OF LEFT BUTTOCK, STAGE 4 01/30/[address] active 18 PRESSURE ULCER OF RIGHT BUTTOCK, STAGE 3 01/30/[address] active 19 PRESSURE ULCER OF UNSPECIFIED SITE, STAGE 3 01/30/[address] active 20 PRESSURE-INDUCED DEEP TISSUE DAMAGE OF RIGHT HIP 01/30/[address] active 21 UNSTEADINESS ON FEET 01/30/[address] active 22 VENOUS INSUFFICIENCY (CHRONIC) (PERIPHERAL) 01/30/[address] active Reason for Referral No Reasons for Referral Entered Social History Social History Observation Description Start Date End Date Code Code System Current Smoking Status Tobacco smoking consumption unknown 955108926 SNOMED CT Sex Assigned At Male 1965 62580-1 [facility] Gender Identity Vital Signs Code Code System Vitals Name Values and Units Timing Information 32412-4 [facility] Pain Level Value=0.0 05/06/2024 9279-1 [facility] Respiratory Rate Value=19.0 Units=/m in 05/06/2024 8462-4 [facility] Blood Pressure-Diastolic Value=83 Un its=mmHg 05/06/2024 8480-6 [facility] Blood Pressure-Systolic Byzde=450 Un its=mmHg 05/06/2024 8310-5 [facility] Body Temperature Value=97.7 Units= F 05/06/2024 8867-4 [facility] Heart rate Value=80.0 Units=/min 67344-6 [facility] O2 % BldC Oximetry Value=99.0 Units= % 05/06/2024 81575-6 [facility] Weight Lcdin=574.8 Units=Lbs 8302-2 [facility] Height Value=70.0 Units=Inches 01/31/2024
--- NOTE | 2025-07-11 13:50 | MHC.PC.OV ---
Vital Signs 07/11/25 13:51 Height 5 ft 7 in Weight 251 lb 2 oz BMI 39.3 BP 136/72 Blood Pressure Location Lt brachial Position Sitting Pulse 66 Pulse Source Pulse Oximeter Temp 97.5 F Temp Source Temporal Artery Scan Pulse Oximetry (%) 97 Oxygen Delivery Method Room Air Intake Visit Reasons: [facility] 06/24 Intake Note: Patient is here for hospital discharge follow up. Patient was discharged from [facility] on 06/24/25. 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 Environmental Safety Specialist: Not Required per policy Accompanied by: Self / Same As Patient Allergies No Known Allergies Allergy (Verified 07/11/25 13:51) Medication List - Last Reconciled 07/11/25 by Gardenia Caceres NP apixaban 5 mg PO BID ascorbic acid (vitamin C) 250 mg PO DAILY ferrous sulfate 325 mg PO DAILY furosemide (Lasix) 40 mg PO DAILY lisinopril 5 mg PO DAILY metoprolol tartrate 12.5 mg PO BID polyethylene glycol 3350 17 grams PO DAILY Tobacco use date assessed: 07/11/25 Dental Screening Dental Screen Date: 01/24/25 HPI HPI Comments History of Present Illness Details 60 y/o Male patient who presents to the clinic today for HDF. Pt was admitted at [facility] on 05/07 - 06/24 for PT/OT and medical management. Pt with new onset of Afib, HErEF currently on Furosemide and Eliquis. He Cardioverted(05/05) back to Sinus Rhythm. He does follow up with [facility]. He was found to be Hypertensive and started on Metoprolol and Lisinopril. Pt was also treate for B/L LE Cellulitis and lymphadema. His LE were Debrided at the hospital and he continues to do Dressing changes himself (he does not want [facility] to come to his Home). It is not clear if patient sees Vascular surgery or if he continues to follow with Wound clinic. [facility] Medical History (Updated 07/11/25 @ 14:19 by Gardenia Caceres NP) Venous stasis of lower extremity Atrial fibrillation Heart failure with reduced ejection fraction Surgical History No pertinent past surgical history Family History Father CVD (cardiovascular disease) Mother Diabetes Family/Other Asthma Seizure disorder CAD (coronary artery disease) Social History Housing: House Alcohol intake: never Patient Tobacco Use Status: Never used Tobacco Tobacco use type: Cigarette e-Cigarette/Vaping Use: Never Used Second Hand Smoke Exposure: No service: No Current occupational status: disabled Cognitive needs: No Hearing needs: No Vision needs: Yes (glasses) Questionnaire PHQ-9 Over the last 2 weeks, how often have you been bothered by any of the following problems? 1. Little interest or pleasure in doing things: not at all 2. Feeling down, depressed, or hopeless: not at all 3. Trouble falling or staying asleep, or sleeping too much: not at all 4. Feeling tired or having little energy: not at all 5. Poor appetite or overeating: not at all 6. Feeling bad about yourself - or that you are a failure or have let yourself or your family down: not at all 7. Trouble concentrating on things, such as reading the newspaper or watching television: not at all 8. Moving or speaking so slowly that other people could have noticed. Or the opposite - being so fidgety or restless that you have been moving around a lot more than usual: not at all 9. Thoughts that you would be better off or of hurting yourself in some way: not at all Total score: 0 Depression Screening Interpretation: Negative Depression Screening Done: Yes Source: Developed by Drs. Padilla Phan, Deanna Tobin, Samuel Platt and colleagues, with an educational isabel from [employer]. Thrive Questionnaire Date Thrive assessed: 01/24/25 I am a: Patient What is your living situation today?: I have a steady place to live Within the past 12 months, did the food you bought not last and you didn't have the money to get more?: Never true Within the past 12 months, did you worry whether your food would run out before you got money to buy more?: Never true Do you have trouble paying for medicines?: No Do you have trouble getting transportation to medical appointments?: No Do you have trouble paying your heating and electricity bill?: No Do you have trouble taking care of your child, family member or friend?: No Do you have trouble with day-to-day activities such as bathing, preparing meals, shopping, managing finances, etc.?: No Are you currently unemployed and looking for a job?: Yes Are you interested in more education?: No Please select the resources that you would like help with: None Currently or been in a relationship where the following occur: I choose not to answer THRIVE Score: 0 AUDIT C Alcohol Use Questionnaire (AUDIT-C) 1. How often do you have a drink containing alcohol?: Never Total Score: 0 RENE-7 AMB Questionnaire RENE-7 Date RENE - 7 assessed: 01/24/25 Feeling nervous, anxious, or on edge: 0 = Not at all Not being able to stop or control worryin = Not at all Worrying too much about different things: 0 = Not at all Trouble relaxin = Not at all Being so restless that it is hard to sit still: 0 = Not at all Becoming easily annoyed or irritable: 0 = Not at all Feeling afraid as if something awful might happen: 0 = Not at all Total RENE-7 score (0-4 normal; 5-9 mild; 10-14 moderate; 15-21 severe): 0 Source: Developed by Drs. Padilla Phan, Deanna Tobin, Samuel Platt and colleagues, with an educational isabel from [employer]. Review of Systems Const All systems reviewed & are unremarkable except as noted in HPI and below Physical exam (Primary Care) Vital Signs: Last Vital Signs Temp 97.5 F 07/11/25 13:51 Pulse 66 07/11/25 13:51 BP 136/72 07/11/25 13:51 Pulse Ox 97 07/11/25 13:51 Oxygen Delivery Method Room Air 07/11/25 13:51 BMI result Body Mass Index 39.3 Tobacco/Smoking Status: Tobacco use Status Tobacco use date assessed 07/11/25 07/11/25 13:56 Patient Tobacco Use Status Never used Tobacco 07/11/25 13:56 Tobacco use type Cigarette 07/11/25 13:56 e-Cigarette/Vaping Use Never Used 07/11/25 13:56 PHQ-9: PHQ-9 Score PHQ-9: Total score 0 07/11/25 14:21 Depression Screening Interpretation: Negative Thrive Assessment: Date of Thrive Assessment Date Thrive assessed 01/24/25 07/11/25 13:56 Currently or been in a relationship where the following occur: I choose not to answer Const General: no acute distress and poor hygiene Nutritional Appearance: obese Orientation/consciousness: patient oriented x3 Resp Effort & Inspection: normal respiratory effort Auscultation: clear to auscultation bilaterally Cardio Heart sounds: S1 normal heart sound present and S2 normal heart sound present Neuro General: patient oriented x3, gait normal and moves all extremities Extrem Other: B/L LE with dressings on, No infection. No tenderness. Coding Level of Care Code Est Pt Level 4 (39180) Diagnoses Heart failure with reduced ejection fraction I50.20 Atrial fibrillation I48.91 Venous stasis of lower extremity I87.8 Time Spent (min) 20 Assessment & Plan Assessment & Plan (1) Heart failure with reduced ejection fraction: Code(s): I50.20 - Unspecified systolic (congestive) heart failure Category: Medical Plan: Stable Managed by [facility]. Continue on current regiment. (2) Atrial fibrillation: Code(s): I48.91 - Unspecified atrial fibrillation Category: Medical Plan: Stable Managed by [facility]. Continue on current regiment. (3) Venous stasis of lower extremity: Code(s): I87.8 - Other specified disorders of veins Category: Medical Plan: Placed referral to Vascular surgery Orders: Referrals Vascular Surgery Referral I87.8 - Other specified disorders of veins Medications: New apixaban 5 mg PO BID 60 tabs 0RF I48.91 - Unspecified atrial fibrillation, I50.20 - Unspecified systolic (congestive) heart failure furosemide (Lasix) 40 mg PO DAILY 30 tabs 0RF I50.20 - Unspecified systolic (congestive) heart failure lisinopril 5 mg PO DAILY 30 tabs 0RF I10 - Essential (primary) hypertension metoprolol tartrate 25 mg PO BID 60 tabs 0RF I10 - Essential (primary) hypertension
[2025-07-11 13:51] VITALS: BP 136/72; PULSE 66; TEMP 36.4; O2SAT 97; BMI 39.3
== END 2025-07-11 14:21 | disposition home or self-care (01) ==
LOC: HO.HMCH 13:46
PROVIDERS: Visit Provider Nurse Practitioner Family
DX: I50.20 Unspecified systolic (congestive) heart failure (principal); I48.91 Unspecified atrial fibrillation; I87.8 Other specified disorders of veins

== ENCOUNTER → 2025-07-11 13:45 | Outpatient (BNVA) | payer OTHER, SELFPAY | PROVIDERS: PCP Internal Medicine; Visit Provider Nurse Practitioner Family | DX: I11.0 Hypertensive heart disease with heart failure (principal); I48.91 Unspecified atrial fibrillation; I50.20 Unspecified systolic (congestive) heart failure; I78.8 Other diseases of capillaries; Z79.01 Long term (current) use of anticoagulants | CPT/HCPCS: 99212 ==

== ENCOUNTER 2025-08-25 13:43 | Outpatient (AMB) | payer OTHER, SELFPAY ==
[2025-08-25 13:44] VITALS: BP 180/100; PULSE 85; RESP 18; TEMP 36.4; O2SAT 94; BMI 40.7
--- NOTE | 2025-08-25 13:44 | MHC.PC.OV ---
Vital Signs 08/25/25 13:44 Height 5 ft 7 in Weight 260 lb 2 oz BMI 40.7 BP 180/100 H Blood Pressure Location Rt brachial Position Sitting Respiration 18 Pulse 85 Pulse Source Pulse Oximeter Temp 97.5 F Temp Source Temporal Artery Scan Pulse Oximetry (%) 94 Oxygen Delivery Method Room Air Intake Visit Reasons: Transfer Care from Dr. Greenfield Lens Coating Technician Required: No Accompanied by: Self / Same As Patient Allergies No Known Allergies Allergy (Verified 08/25/25 13:45) Tobacco use date assessed: 08/25/25 Dental Screening Dental Screen Date: 08/25/25 Did you have a dental visit in the last 12 months?: No Did you have a dental problem in the last 6 months where you did not have access to dental care?: No Was dental information given to patient?: No PFSH Medical History Venous stasis of lower extremity Atrial fibrillation Heart failure with reduced ejection fraction Surgical History No pertinent past surgical history Family History Father CVD (cardiovascular disease) Mother Diabetes Family/Other Asthma Seizure disorder CAD (coronary artery disease) Social History Housing: House Alcohol intake: never Patient Tobacco Use Status: Never used Tobacco Tobacco use type: Cigarette e-Cigarette/Vaping Use: Never Used Second Hand Smoke Exposure: No service: No Current occupational status: disabled Cognitive needs: No Hearing needs: No Vision needs: Yes (glasses) Questionnaire Thrive Questionnaire Date Thrive assessed: 07/11/25 I am a: Patient What is your living situation today?: I have a steady place to live Within the past 12 months, did the food you bought not last and you didn't have the money to get more?: Never true Within the past 12 months, did you worry whether your food would run out before you got money to buy more?: Never true Do you have trouble paying for medicines?: No Do you have trouble getting transportation to medical appointments?: No Do you have trouble paying your heating and electricity bill?: No Do you have trouble taking care of your child, family member or friend?: No Do you have trouble with day-to-day activities such as bathing, preparing meals, shopping, managing finances, etc.?: No Are you currently unemployed and looking for a job?: Yes Are you interested in more education?: No Please select the resources that you would like help with: None Currently or been in a relationship where the following occur: I choose not to answer THRIVE Score: 0 RENE-7 AMB Questionnaire RENE-7 Date RENE - 7 assessed: 01/24/25 Source: Developed by Drs. Padilla Phan, Deanna Tobin, Samuel Platt and colleagues, with an educational isabel from [employer]. Physical exam (Primary Care) Tobacco/Smoking Status: Tobacco use Status Tobacco use date assessed 07/11/25 07/11/25 13:56 Patient Tobacco Use Status Never used Tobacco 07/11/25 13:56 Tobacco use type Cigarette 07/11/25 13:56 e-Cigarette/Vaping Use Never Used 07/11/25 13:56 Thrive Assessment: Date of Thrive Assessment Date Thrive assessed 07/11/25 08/25/25 13:43 Currently or been in a relationship where the following occur: I choose not to answer Coding
--- NOTE | 2025-08-25 14:10 | MHC.PC.OV ---
Vital Signs 08/25/25 13:44 08/25/25 14:35 Height 5 ft 7 in Weight 260 lb 2 oz BMI 40.7 BP 180/100 H 184/110 H Blood Pressure Location Rt brachial Lt brachial Position Sitting Respiration 18 Pulse 85 Pulse Source Pulse Oximeter Temp 97.5 F Temp Source Temporal Artery Scan Pulse Oximetry (%) 94 Oxygen Delivery Method Room Air Intake Visit Reasons: Transfer Care from Dr. Greenfield Allergies No Known Allergies Allergy (Verified 08/25/25 14:11) Medication List - Last Reconciled 08/25/25 by GOPI Buchanan apixaban 5 mg PO BID ascorbic acid (vitamin C) 250 mg PO DAILY ferrous sulfate 325 mg PO DAILY furosemide (Lasix) 40 mg PO DAILY lisinopril 5 mg PO DAILY metoprolol tartrate 25 mg PO BID polyethylene glycol 3350 17 grams PO DAILY Tobacco use date assessed: 08/25/25 Dental Screening Dental Screen Date: 08/25/25 Did you have a dental visit in the last 12 months?: No Did you have a dental problem in the last 6 months where you did not have access to dental care?: No Was dental information given to patient?: No HPI Transfer Care from Dr. Greenfield HPI Details The patient is a 60-year-old male presenting to transition care from Dr. Greenfield who retired. The patient has significant past medical history of atrial fibrillation, heart failure with reduced ejection fraction, HTN, venous stasis of the lower extremity come necrotizing fasciitis, cellulitis The patient reports that he has not been taking his medication due to the cost. Reports that he was charged 45 dollars for 2 pills and he is not able to pay for these medications. The patient reports that he has not taken his medications for a couple of months now. His blood pressure is 184/110. Called the patient pharmacy to see if there is any discount that he is qualified for. Per pharmacy personal, [facility] does not take the patient's insurance and that is why his medication appears expensive. The patient pharmacy was switched to [facility] on [facility] and the medications were reordered. The patient is noted to have bilateral lower extremity edema. Both legs are bright pink, with a brighter pink on right lower leg that has an eschar mid abbasi. The leg is warm to touch. The patient was started on doxycycline for cellulitis and was referred to the wound clinic through [facility]. The patient reports that he does not know much about [facility] and feels more comfortable finding his way around [facility]. Labs ordered to evaluate the patient's condition further. We will have the patient return in 4 weeks for re-evaluation. [facility] Medical History Venous stasis of lower extremity Atrial fibrillation Heart failure with reduced ejection fraction Surgical History No pertinent past surgical history Family History Father CVD (cardiovascular disease) Mother Diabetes Family/Other Asthma Seizure disorder CAD (coronary artery disease) Social History Housing: House Alcohol intake: never Patient Tobacco Use Status: Never used Tobacco Tobacco use type: Cigarette e-Cigarette/Vaping Use: Never Used Second Hand Smoke Exposure: No service: No Current occupational status: disabled Cognitive needs: No Hearing needs: No Vision needs: Yes (glasses) Questionnaire Thrive Questionnaire Date Thrive assessed: 07/11/25 I am a: Patient What is your living situation today?: I have a steady place to live Within the past 12 months, did the food you bought not last and you didn't have the money to get more?: Never true Within the past 12 months, did you worry whether your food would run out before you got money to buy more?: Never true Do you have trouble paying for medicines?: No Do you have trouble getting transportation to medical appointments?: No Do you have trouble paying your heating and electricity bill?: No Do you have trouble taking care of your child, family member or friend?: No Do you have trouble with day-to-day activities such as bathing, preparing meals, shopping, managing finances, etc.?: No Are you currently unemployed and looking for a job?: Yes Are you interested in more education?: No Please select the resources that you would like help with: None Currently or been in a relationship where the following occur: I choose not to answer THRIVE Score: 0 RENE-7 AMB Questionnaire RENE-7 Date RENE - 7 assessed: 01/24/25 Source: Developed by Drs. Padilla Phan, Deanna Tobin, Samuel Platt and colleagues, with an educational isabel from [employer]. Review of Systems Const Denies headache(s) Eyes Denies loss of vision ENT Denies vertigo, Denies dizziness, Denies headache(s) and Denies sore throat Card Denies chest pain, Denies leg edema, Denies lightheadedness and Reports dyspnea on exertion Resp Denies cough, Denies hemoptysis, Reports dyspnea on exertion and Denies wheezing GI Denies abdominal pain, Denies melena, Denies constipation, Denies diarrhea and Denies vomiting Denies dysuria, Denies urinary frequency and Denies urinary urgency Musc Denies arthralgias, Denies joint swelling, Denies numbness and Denies tingling Skin/Breast Reports skin swelling (BLE) Neuro Denies Abnormal speech present, Denies behavioral changes, Denies vertigo, Denies dizziness, Denies headache(s), Denies loss of vision, Denies memory loss, Denies numbness and Denies tingling Psych Denies anxiety, Denies behavioral changes, Denies depression, Denies memory loss and Denies panic attacks Dakota/Lymph Denies easy bleeding and Denies easy bruising Aller/Immun Denies wheezing Physical exam (Primary Care) Vital Signs: Last Vital Signs Temp 97.5 F 08/25/25 13:44 Pulse 85 08/25/25 13:44 Resp 18 08/25/25 13:44 BP 180/100 H 08/25/25 13:44 Pulse Ox 94 08/25/25 13:44 Oxygen Delivery Method Room Air 08/25/25 13:44 BMI result Body Mass Index 40.7 Tobacco/Smoking Status: Tobacco use Status Tobacco use date assessed 08/25/25 08/25/25 13:56 Patient Tobacco Use Status Never used Tobacco 08/25/25 13:56 Tobacco use type Cigarette 08/25/25 13:56 e-Cigarette/Vaping Use Never Used 08/25/25 13:56 Thrive Assessment: Date of Thrive Assessment Date Thrive assessed 07/11/25 08/25/25 13:56 Currently or been in a relationship where the following occur: I choose not to answer Const General: healthy appearing, no acute distress, alert and awake Nutritional Appearance: well nourished Orientation/consciousness: oriented to person, oriented to place and oriented to time HENMT Ears: hearing grossly normal bilaterally General nose exam: Normal nasal mucous membranes and turbinates present Eyes Conjunctivae: conjunctivae normal Sclerae: sclerae normal Pupils: Equal, round and reactive pupils present Neck Neck: Yes no lymphadenopathy and Yes no JVD Thyroid: Thyroid normal Carotids: no bruits Resp Effort & Inspection: normal respiratory effort and not tachypneic Auscultation: no crackles, no rales, no rhonchi and no wheezes Cardio Rate: regular rate Rhythm: regular rhythm Heart sounds: S1 normal heart sound present, S2 normal heart sound present, no murmurs and normal S1 and S2 GI Inspection: Yes obesity Palpation (GI): Soft to palpation, nontender, no hepatomegaly and no splenomegaly Auscultation: normal bowel sounds General: Yes no CVA tenderness Back/Spine/Pelvis Back: no CVA tenderness Skin General skin exam: dry skin and eschar (right abbasi) Wounds: wounds noted (Right abbasi area) Neuro General: oriented to person, oriented to place and oriented to time Cranial nerves: Yes Equal, round and reactive pupils present Speech: No Abnormal speech present Gait exam (Neuro): Normal gait present Motor exam (neuro): no tremor noted Extrem Right upper extremity: full ROM Left upper extremity: full ROM Right lower extremity: full ROM and edema Details: pitting and 4+ Left lower extremity: full ROM and edema Details: pitting and 4+ Psych Mental Status: mental status grossly normal Speech and movement: Normal speech and movement present Affect: normal affect Attitude: cooperative Thought process: Normal thought process present Coding Level of Care Code Est Pt Level 4 (54667) Diagnoses Hypertension, unspecified type I10 Hypertension type: unspecified Heart failure with reduced ejection fraction I50.20 Atrial fibrillation, unspecified type I48.91 Atrial fibrillation type: unspecified Venous stasis of lower extremity I87.8 Cellulitis of lower extremity, unspecified laterality L03.119 Site of cellulitis: extremity Site of cellulitis of extremity: lower extremity Laterality: unspecified laterality Wound of right lower extremity, subsequent encounter S81.801D Encounter type: subsequent encounter Time Spent (min) 39 Assessment & Plan Assessment & Plan (1) Hypertension: Code(s): I10 - Essential (primary) hypertension Category: Medical Qualifiers: Hypertension type: unspecified Qualified Code(s): I10 - Essential (primary) hypertension Plan: Blood pressure 184/110. Patient has not taken his blood pressure medication for a couple of months now due to cost. [facility] was called and they reported that they do not take the patient's insurance hence the increased cost. Patient pharmacy was switched to [facility] on [facility]. Metoprolol tartrate 25 mg b.i.d., lisinopril 5 mg daily, and furosemide 40 mg daily sent to new pharmacy. Reinforced low-salt diet. We will have the patient follow up in 4 weeks to re-evaluate (2) Heart failure with reduced ejection fraction: Code(s): I50.20 - Unspecified systolic (congestive) heart failure Category: Medical Plan: Similarly the patient has not been taking his medication. +4 pitting edema in lower extremity. Dyspnea with exertion that resolves with rest. Lung sounds clear to auscultation. Furosemide 40 mg daily sent to pharmacy. (3) Atrial fibrillation: Code(s): I48.91 - Unspecified atrial fibrillation Category: Medical Qualifiers: Atrial fibrillation type: unspecified Qualified Code(s): I48.91 - Unspecified atrial fibrillation Plan: The patient has a history of AFib and has not been taking apixaban 5 mg b.i.d. Rx sent to new pharmacy. Heart rhythm regular in office on auscultation. (4) Venous stasis of lower extremity: Code(s): I87.8 - Other specified disorders of veins Category: Medical Plan: BLE +4 pitting edema. Both extremities bright pink. Right lower leg warmer and slightly pinker than left. Doxycycline 100 mg b.i.d. ordered times 10 days. (5) Cellulitis: Code(s): L03.90 - Cellulitis, unspecified Category: Medical Qualifiers: Site of cellulitis: extremity Site of cellulitis of extremity: lower extremity Laterality: unspecified laterality Qualified Code(s): L03.119 - Cellulitis of unspecified part of limb Plan: BLE +4 pitting edema. Both extremities bright pink. Right lower leg warmer and slightly pinker than left. Doxycycline 100 mg b.i.d. ordered times 10 days. (6) Wound of right leg: Code(s): S81.801A - Unspecified open wound, right lower leg, initial encounter Category: Medical Qualifiers: Encounter type: subsequent encounter Qualified Code(s): S81.801D - Unspecified open wound, right lower leg, subsequent encounter Plan: Eschar area in the middle of right abbasi. The patient was referred to wound clinic at [facility] per his request. The patient reports that he is not comfortable with [facility] and is more family with [facility]. Orders: Orders Lipid Panel Today E66.01 - Morbid (severe) obesity due to excess calories, I10 - Essential (primary) hypertension, I48.91 - Unspecified atrial fibrillation, I50.20 - Unspecified systolic (congestive) heart failure, R03.0 - Elevated blood-pressure reading, without diagnosis of hypertension, R60.0 - Localized edema, Z68.37 - Body mass index [BMI] 37.0-37.9, adult Vitamin D 25-OH Total Today E66.01 - Morbid (severe) obesity due to excess calories, I10 - Essential (primary) hypertension, I48.91 - Unspecified atrial fibrillation, I50.20 - Unspecified systolic (congestive) heart failure, R03.0 - Elevated blood-pressure reading, without diagnosis of hypertension, R60.0 - Localized edema, Z68.37 - Body mass index [BMI] 37.0-37.9, adult NT Pro B Type Natriuretic Pept Today E66.01 - Morbid (severe) obesity due to excess calories, I10 - Essential (primary) hypertension, I48.91 - Unspecified atrial fibrillation, I50.20 - Unspecified systolic (congestive) heart failure, R03.0 - Elevated blood-pressure reading, without diagnosis of hypertension, R60.0 - Localized edema, Z68.37 - Body mass index [BMI] 37.0-37.9, adult Complete Blood Count Auto Diff Today E66.01 - Morbid (severe) obesity due to excess calories, I10 - Essential (primary) hypertension, I48.91 - Unspecified atrial fibrillation, I50.20 - Unspecified systolic (congestive) heart failure, R03.0 - Elevated blood-pressure reading, without diagnosis of hypertension, R60.0 - Localized edema, Z68.37 - Body mass index [BMI] 37.0-37.9, adult Comprehensive [place]. Panel Fast Today E66.01 - Morbid (severe) obesity due to excess calories, I10 - Essential (primary) hypertension, I48.91 - Unspecified atrial fibrillation, I50.20 - Unspecified systolic (congestive) heart failure, R03.0 - Elevated blood-pressure reading, without diagnosis of hypertension, R60.0 - Localized edema, Z68.37 - Body mass index [BMI] 37.0-37.9, adult TSH reflex Free T4 Today E66.01 - Morbid (severe) obesity due to excess calories, I10 - Essential (primary) hypertension, I48.91 - Unspecified atrial fibrillation, I50.20 - Unspecified systolic (congestive) heart failure, R03.0 - Elevated blood-pressure reading, without diagnosis of hypertension, R60.0 - Localized edema, Z68.37 - Body mass index [BMI] 37.0-37.9, adult UA CC w/rflx Micro + Cult Today E66.01 - Morbid (severe) obesity due to excess calories, I10 - Essential (primary) hypertension, I48.91 - Unspecified atrial fibrillation, I50.20 - Unspecified systolic (congestive) heart failure, R03.0 - Elevated blood-pressure reading, without diagnosis of hypertension, R60.0 - Localized edema, Z68.37 - Body mass index [BMI] 37.0-37.9, adult Microalbumin, Random (w Creat) Today E66.01 - Morbid (severe) obesity due to excess calories, I10 - Essential (primary) hypertension, I48.91 - Unspecified atrial fibrillation, I50.20 - Unspecified systolic (congestive) heart failure, R03.0 - Elevated blood-pressure reading, without diagnosis of hypertension, R60.0 - Localized edema, Z68.37 - Body mass index [BMI] 37.0-37.9, adult Referrals Wound Care Referral S81.801A - Unspecified open wound, right lower leg, initial encounter Medications: New polyethylene glycol 3350 17 grams PO DAILY 100 ea 3RF doxycycline monohydrate 100 mg PO BID 20 caps 0RF 10 days ascorbic acid (vitamin C) 250 mg PO DAILY 90 tabs 3RF Changed From furosemide (Lasix) 40 mg PO DAILY 30 tabs 0RF I50.20 - Unspecified systolic (congestive) heart failure To furosemide (Lasix) 40 mg PO DAILY 90 tabs 3RF 90 days I50.20 - Unspecified systolic (congestive) heart failure Refilled apixaban 5 mg PO BID 90 tabs 3RF I48.91 - Unspecified atrial fibrillation, I50.20 - Unspecified systolic (congestive) heart failure lisinopril 5 mg PO DAILY 90 tabs 3RF I10 - Essential (primary) hypertension lisinopril 5 mg PO DAILY 90 tabs 3RF I10 - Essential (primary) hypertension metoprolol tartrate 25 mg PO BID 60 tabs 3RF I10 - Essential (primary) hypertension
[2025-08-25 14:35] VITALS: BP 184/110
--- OUTSIDE RECORDS SUMMARY | 2025-08-25 16:08 | XMS_ITS | Encounter Summary ---
Author Organization [facility] Address [address] [place] [address] Care Team Providers Care Medical Housekeeper Name Role Phone Johann Zaldivar MD Primary Care Provider Encounter Details Date Type Department Care Team (Late st Contact Info) Description 05/08/2025 Lab Requisition [facility] - Main Lab [address] [facility] [place] [phone] Johann Zaldivar MD [address] [place] [phone] Heart failure, unspecified (CMS/HCC V24, CMS/HCC V28) Social History Tobacco Use Types Packs/Day Years Used Date Smoking Tobacco: Never Assessed Food Risk Answer Date Recorded Within the past 12 months we worried whether our food would run out before we got money to buy more. Never true 05/02/2025 Within the past 12 months th e food we bought just didn't last and we didn't have money to get more. Never true 05/02/2025 Interpersonal Safety Answer Date Record ed Physical Abuse Unrecognized value 04/30/2025 Verbal Abuse Unrecognized value 04/30/2025 Sex and Gender Information Value Date Recorded Sex Assigned at Not on file Legal Sex Male 7:27 PM EST Gender Identity Not on file Sexual Orientation Not on file documented as of this encounter Plan of Treatment Not on file documented as of this encounter Procedures Procedure Name Priority Date/Time Associated Diagnosis Comments COMPLETE BLOOD COUNT Routine 05/08/2025 6:17 AM EDT Heart failure, unspecified ([facility] V24, [facility] V28) BASIC METABOLIC PANEL Routine 05/08/2025 6:17 AM EDT Heart failure, unspecified ([facility] V24, [facility] V28) documented in this encounter Results * (ABNORMAL) Basic metabolic panel (05/08/2025 6:17 AM EDT) Sodium 139 133 - 145 mmol/L LAB CHEMISTRY METHOD 05/08/2025 11:53 AM [facility] Potassium 3.8 3.5 - 5.5 mmol/L LAB CHEMISTRY METHOD 05/08/2025 11:53 AM [facility] Chloride 105 96 - 110 mmol/L LAB CHEMISTRY METHOD 05/08/2025 11:53 AM [facility] CO2 26 21 - 32 mmol/L LAB CHEMISTRY METHOD 05/08/2025 11:53 AM [facility] Anion Gap 8 3 - 11 LAB CHEMISTRY METHOD 05/08/2025 11:53 AM [facility] Glucose 70 70 - 100 mg/dL LAB CHEMISTRY METHOD 05/08/2025 11:53 AM [facility] BUN 23 5 - 25 mg/dL LAB CHEMISTRY METHOD 05/08/2025 11:53 AM [facility] Creatinine 1.03 0.70 - 1.30 mg/dL LAB CHEMISTRY METHOD 05/08/2025 11:53 AM [facility] eGFR 85 >=60 mL/min/1. 73m2 LAB CHEMISTRY METHOD 05/08/2025 11:53 AM [facility] Comment:Calculation based on the Chronic Kidney Disease Epidemiology Collaboration (CKD-EPI) equation refit without adjustment for race. BUN/Creatinine Ratio 22.3 LAB CHEMISTRY METHOD 05/08/2025 11:53 AM [facility] Calcium 8.1(L) 8.5 - 10.5 mg/dL LAB CHEMISTRY METHOD 05/08/2025 11:53 AM EDT [facility] Blood Venous blood specimen / Unknown Venipuncture / Unknown 05/08/2025 6:17 AM EDT 05/08/2025 9:17 AM EDT us Johann Zaldivar MD LAB BLOOD ORDERABLES Final Resu lt [facility] [address] [place] [address], [place] [phone] * (ABNORMAL) Complete blood count (05/08/2025 6:17 AM EDT) WBC 6.0 4.8 - 10.8 K/mcL LAB HEMETOLOGY METHOD 05/08/2025 10:47 AM [facility] RBC 4.00(L) 4.50 - 5.50 M/mcL LAB HEMETOLOGY METHOD 05/08/2025 10:47 AM [facility] Hemoglobin 10.1(L) 13.5 - 17.5 g/dL LAB HEMETOLOGY METHOD 05/08/2025 10:47 AM [facility] Hematocrit 34.8(L) 42.0 - 54.0 % LAB HEMETOLOGY METHOD 05/08/2025 10:47 AM [facility] MCV 86.1 79.0 - 98.0 FL LAB HEMETOLOGY METHOD 05/08/2025 10:47 AM [facility] MCH 25.0(L) 27.0 - 32.0 pcg LAB HEMETOLOGY METHOD 05/08/2025 10:47 AM [facility] MCHC 29.0(L) 32.0 - 37.0 g/dL LAB HEMETOLOGY METHOD [facility] RDW 18.0(H) 11.0 - 15.0 % LAB HEMETOLOGY METHOD 05/08/2025 10:47 AM EDT [facility] Platelets 292 130 - 400 K/mcL LAB HEMETOLOGY METHOD 05/08/2025 10:47 AM EDT [facility] MPV 9.5 7.0 - 11.0 FL LAB HEMETOLOGY METHOD 05/08/2025 10:47 AM EDT [facility] NRBC 0.0 <1.0 % LAB HEMETOLOGY METHOD 05/08/2025 10:47 AM EDT [facility] NRBC Absolute 0.00 <0.10 K/mcL LAB HEMETOLOGY METHOD 05/08/2025 10:47 AM EDT [facility] Blood Venous blood specimen / Unknown Venipuncture / Unknown 05/08/2025 6:17 AM EDT 05/08/2025 9:17 AM EDT us Johann Zaldivar MD LAB BLOOD ORDERABLES Final Resu lt [facility] [address] [place] [address], [place] [phone] documented in this encounter Visit Diagnoses Diagnosis Heart failure, unspecified (CMS/HCC V24, CMS/HCC V28) Heart failure, unspecified documented in this encounter Care Teams Medical Housekeeper Relationship Specialty Start Date End Date Johann Zaldivar MD [address] [place] [id number] PCP - General Hospitalist Medicine 05/08/25 06/29/25 documented as of this encounter
--- OUTSIDE RECORDS SUMMARY | 2025-08-25 16:08 | XMS_ITS | Encounter Summary ---
Author Organization [facility] [place] [address] Care Team Providers Care Halver Machine Operator Name Role Phone Johann Zaldivar MD Primary Care Provider [phone] Encounter Details Date Type Department Care Team (Late st Contact Info) Description 05/15/2025 Lab Requisition [facility] - Main Lab [address] [facility] [place] [phone] Johann Zaldivar MD [address] [place] [phone] Essential (primary) hypertension; Muscle weakness (generalized) Social History Tobacco Use Types Packs/Day Years [...] Procedure Name Priority Date/Time Associated Diagnosis Comments BASIC METABOLIC PANEL Routine 05/15/2025 6:29 AM EDT Essential (primary) hypertension Muscle weakness (generalized) documented in this encounter Results * (ABNORMAL) Basic metabolic panel (05/15/2025 6:29 AM EDT) Sodium 140 133 - 145 mmol/L LAB CHEMISTRY METHOD 05/15/2025 10:58 AM [facility] Potassium 4.0 3.5 - 5.5 mmol/L LAB CHEMISTRY METHOD 05/15/2025 10:58 AM [facility] Chloride 106 96 - 110 mmol/L LAB CHEMISTRY METHOD 05/15/2025 10:58 AM [facility] CO2 26 21 - 32 mmol/L LAB CHEMISTRY METHOD 05/15/2025 10:58 AM [facility] Anion Gap 8 3 - 11 LAB CHEMISTRY METHOD 05/15/2025 10:58 AM [facility] Glucose 72 70 - 100 mg/dL LAB CHEMISTRY METHOD 05/15/2025 10:58 AM [facility] BUN 25 5 - 25 mg/dL LAB CHEMISTRY METHOD 05/15/2025 10:58 AM [facility] Creatinine 1.04 0.70 - 1.30 mg/dL LAB CHEMISTRY METHOD 05/15/2025 10:58 AM [facility] eGFR 84 >=60 mL/min/1. 73m2 LAB CHEMISTRY METHOD 05/15/2025 10:58 AM [facility] Comment:Calculation based on the Chronic Kidney Disease Epidemiology Collaboration (CKD-EPI) equation refit without adjustment for race. BUN/Creatinine Ratio 24.0 LAB CHEMISTRY METHOD 05/15/2025 10:58 AM [facility] Calcium 8.2(L) 8.5 - 10.5 mg/dL LAB CHEMISTRY METHOD 05/15/2025 10:58 AM [facility] Blood Venous blood specimen / Unknown Venipuncture / Unknown 05/15/2025 6:29 AM EDT 05/15/2025 8:50 AM EDT us Johann Zaldivar MD LAB BLOOD ORDERABLES Final Resu lt [facility] [address] [place] [address], documented in this encounter Visit Diagnoses Diagnosis Essential (primary) hypertension Unspecified essential hypertension Muscle weakness (generalized) documented in this encounter Care Teams Halver Machine Operator Relationship Specialty Start Date End Date Johann Zaldivar MD [address] [place] [phone] PCP - General Hospitalist Medicine 05/08/25 06/29/25 documented as of this encounter
--- OUTSIDE RECORDS SUMMARY | 2025-08-25 16:08 | XMS_ITS | Encounter Summary ---
Author Organization [facility] Address [address] [place] [address] Care Team Providers Care Licensed Pharmacist Name Role Phone Johann Zaldivar MD Primary Care Provider [phone] Encounter Details Date Type Department Care Team (Late st Contact Info) Description 06/13/[address] [facility] - Main Lab [address] [facility] [place] [id number] Johann Zaldivar MD [address] [place] [id number] Hypertensive heart disease with heart failure (CMS/HCC V24, CMS/HCC V28); Cellulitis of left lower limb Social History Tobacco Use Types Packs/Day Years [...] Associated Diagnosis Comments BASIC METABOLIC PANEL Routine 06/13/2025 7:03 AM EDT Hypertensive heart disease with heart failure ([facility] V24, [facility] V28) Cellulitis of left lower limb documented in this encounter Results * (ABNORMAL) Basic metabolic panel (06/13/2025 7:03 AM EDT) Sodium 138 133 - 145 mmol/L LAB CHEMISTRY METHOD 06/13/2025 2:05 PM [facility] Potassium 4.6 3.5 - 5.5 mmol/L LAB CHEMISTRY METHOD 06/13/2025 2:05 PM [facility] Chloride 108 96 - 110 mmol/L LAB CHEMISTRY METHOD 06/13/2025 2:05 PM [facility] CO2 20(L) 21 - 32 mmol/L LAB CHEMISTRY METHOD 06/13/2025 2:05 PM [facility] Anion Gap 10 3 - 11 LAB CHEMISTRY METHOD 06/13/2025 2:05 PM [facility] Glucose 69(L) 70 - 100 mg/dL LAB CHEMISTRY METHOD 06/13/2025 2:05 PM [facility] BUN 29(H) 5 - 25 mg/dL LAB CHEMISTRY METHOD 06/13/2025 2:05 PM [facility] Creatinine 0.97 0.70 - 1.30 mg/dL LAB CHEMISTRY METHOD 06/13/2025 2:05 PM [facility] eGFR 90 >=60 mL/min/1. 73m2 LAB CHEMISTRY METHOD 06/13/2025 2:05 PM [facility] Comment:Calculation based on the Chronic Kidney Disease Epidemiology Collaboration (CKD-EPI) equation refit without adjustment for race. BUN/Creatinine Ratio 29.9 LAB CHEMISTRY METHOD 06/13/2025 2:05 PM [facility] Calcium 9.1 8.5 - 10.5 mg/dL LAB CHEMISTRY METHOD 06/13/2025 2:05 PM EDT [facility] Blood Venous blood specimen / Unknown Venipuncture / Unknown 06/13/2025 7:03 AM EDT 06/13/2025 11:08 AM EDT us Johann Zaldivar MD LAB BLOOD ORDERABLES Final Resu lt [facility] [address] [place] [address], documented in this encounter Visit Diagnoses Diagnosis Hypertensive heart disease with heart failure (CMS/HCC V24, CMS/HCC V28) Unspecified hypertensive heart disease with heart failure Cellulitis of left lower limb documented in this encounter Care Teams Licensed Pharmacist Relationship Specialty Start Date End Date Johann Zaldivar MD [address] [place] [id number] PCP - General Hospitalist Medicine 05/08/25 06/29/25 documented as of this encounter
--- OUTSIDE RECORDS SUMMARY | 2025-08-25 16:10 | XMS_ITS | Clinical Summary ---
Author Organization [facility] Address [address] [place] [address] Phone Care Team Providers Care Flour Blender Name Role Phone Unavailable Primary Care Provider Unavailabl e Allergies No known active allergies Medications apixaban (ELIQUIS) 5 mg tablet Take 1 tablet (5 mg total) by mouth 2 (two) times a day. Active ascorbic acid (VITAMIN C) 250 mg tablet Take 1 tablet (250 mg total) by mouth 1 (one) time each day. 5 05/05/20 Active ferrous sulfate 325 mg (65 mg elemental iron) tablet Take 1 tablet (325 mg total) by mouth 1 (one) time each day. 5 05/05/20 Active Additional Information Patient not taking.Reported on 06/30/2025 furosemide (LASIX) 40 mg tablet Take 1 tablet (40 mg total) by mouth 1 (one) time each day. 5 05/05/20 Active lisinopriL (PRINIVIL,ZESTR IL) 5 mg tablet Take 1 tablet (5 mg total) by mouth 1 (one) time each day. 5 05/05/20 Active metoprolol tartrate (LOPRESSOR) 25 mg tablet Take 1 tablet (25 mg total) by mouth 2 (two) times a day. 5 05/04/20 Active Active Problems Problem Noted Date Diagnosed Date Primary hypertension 06/30/2025 Assessment & Plan (06/30/2025 8:48 PM EDT): Blood pressure well controlled on current antihypertensive regimen; continue lisinopril, metoprolol, and furosemide. Hypomagnesemia 06/30/2025 Assessment & Plan (06/30/2025 8:48 PM EDT): Orders: Magnesium; Future History of cardioversion 06/30/2025 Assessment & Plan (06/30/2025 8:48 PM EDT): Left bundle branch block 06/30/2025 Assessment & Plan (06/30/2025 8:48 PM EDT): Present on ECG from 01/2024 and unchanged on ECG today. Continue to monitor. Bilateral lower extremity edema 06/30/2025 Assessment & Plan (06/30/2025 8:48 PM EDT): Bradycardia 06/30/2025 Assessment & Plan (06/30/2025 8:48 PM EDT): As above; hospital notes report bradycardia at night, suggestive of possible sleep apnea. We discussed this as well as the relationship between possible sleep apnea and atrial fibrillation. However, he adamantly declines referral to sleep medicine for further evaluation. We discuss the potential correction negative implications of untreated sleep apnea as it relates to his cardiovascular health and he verbalizes understanding. Secondary hypercoagulable state (CMS/HCC V24) Assessment & Plan (06/30/2025 8:48 PM EDT): New onset atrial flutter (CMS/HCC V24, CMS/HCC V 28) 05/27/2025 Assessment & Plan (06/30/2025 8:48 PM EDT): In retrospect, the patient recognizes he had been having palpitations indicative if his atrial flutter prior to admission; he has not had any perceived recurrence of his atrial fibrillation since his successful ESDRAS guided cardioversion 05/05/2025. He is mildly bradycardic today but tolerating this well with symptoms and ECG shows sinus bradycardia; he will continue metoprolol at current dosing. He is anticoagulated on apixaban for cardioembolic prophylaxis; we discussed the risks and benefits of continuing with anticoagulation and he wishes to continue current plan. Apixaban 5 mg twice daily is the appropriate dose for his age of less than 80 years, weight of greater than 60 kg, and creatinine of less than 1.5. He is aware to seek urgent medical attention for any uncontrolled bleeding, signs or symptoms of GI or other internal bleeding, or for any head injury. Orders: ECG 12 lead HFrEF (heart failure with re duced ejection fraction) ([facility] V24, [facility] V28) 05/27/2025 Assessment & Plan (06/30/2025 8:48 PM EDT): He was found to have HFpEF during hospitalization 01/2024 with echo as above. He did not remain compliant with regimen recommended at discharge and subsequently had been struggling with chronic bilateral lower extremity edema which appears significantly improved on exam today though difficult to assess completely given bilateral layo wraps in place which patient declines having removed for further evaluation today. He appears euvolemic on exam today and offers no symptoms to cause concern for overt heart failure. Continue furosemide. Repeat BMP order already in place from PCP; given hypomagnesemia we will update a magnesium level as well. We discussed risk reduction through lifestyle modifications including healthy diet, routine exercise, and weight management. We reviewed heart failure management including low sodium diet, symptom surveillance, daily weights, and medication compliance. I've asked the patient to call if they develop worsening symptoms of heart failure such as increased shortness of breath, new or worsening cough, increased swelling in the legs or ankles, or weight gain of more than 2 pounds in one day or 4 pounds in one week. Orders: Magnesium; Future Persistent atrial fibrillation ([facility] V24, [facility] V28) 05/04/2025 Cellulitis of left lower extremity 05/01/2025 Bilateral lower leg cellulitis 04/30/2025 Encounters Date Type Department Care Team Description 06/30/2025 1:40 PM EDT Office Visit [facility] [address] [facility] [address] [place] [address] Marie Abdi NP Atrial flutter, unspecified type (CMS/HCC V24, CMS/HCC V28) (Primary Dx); History of cardioversion; Secondary hypercoagulable state (CMS/HCC V24); Bradycardia; Chronic heart failure with preserved ejection fraction (CMS/HCC V24, CMS/HCC V28); Bilateral lower extremity edema; Left bundle branch block; Primary hypertension; Hypomagnesemia; Hospital discharge follow-up 06/13/2025 Lab Requisition [facility] - Main Lab [address] [facility] [place] [address] Johann Zaldivar MD Hypertensive heart disease with heart failure (CMS/HCC V24, CMS/HCC V28); Cellulitis of left lower limb from Last 3 Months Medical History Medical History Date Comments CHF (congestive heart failur e) (CMS/HCC V24, CMS/HCC V28) Hypertension Lymphedema Bilateral lower extremity/foreign body/cellulitis Lactic acidosis Iron deficiency anemia Hypomagnesemia Hepatic steatosis with hepatomeg francis Social History Tobacco Use Types Packs/Day Years Used Date Smoking Tobacco: Never Smokeless Tobacco: Never Tobacco Cessation:Counseling Given: Not Answered Food Risk Answer Date Recorded Within the [...] on file Sexual Orientation Not on file Obstetrics History Last Filed Vital Signs Vital Sign Reading Time Taken Comments Blood Pressure 120/70 06/30/2025 1:59 PM EDT Pulse 57 06/30/2025 1:59 PM EDT Temperature 36.1 C (97 F) 05/07/2025 7:45 AM EDT Respiratory Rate 16 05/07/2025 7:45 AM EDT Oxygen Saturation 94% 06/30/2025 1:59 PM EDT Inhaled Oxygen Concentration - - Weight 113 kg (249 lb 9.6 oz) 06/30/2025 1:59 PM EDT Height 170.2 cm (5' 7 ) 06/30/2025 1:59 PM EDT Body Mass Index 39.09 06/30/2025 1:59 PM EDT Plan of Treatment Health Maintenance Due Date Last Done Comments Colorectal Cancer Screening: Colonoscopy 1967 DTaP,Tdap,and Td Vaccines (1 - Tdap) 1986 Hepatitis B Vaccines (1 of 3 - 19+ 3-dose series) 1986 Pneumococcal Vaccine: 50+ Years (1 of 2 - PCV) 1986 Zoster Vaccines (1 of 2) 2017 HIV Screening 06/11/2024 Hepatitis C Screening 06/11/2024 Depression Screening 11/20/2024 COVID-19 Vaccine (1 - 2023- season) 2025 Influenza Vaccine (#1) 2025 Social Influencers of Health Screening 05/02/2026 05/02/2025 Hypertension/CHF/CAD Annual BMP Blood Test 06/13/2026 06/13/2025, 05/15/2025, 05/08/2025, Additional history exists Cholesterol Screening (Lipid Panel) 05/02/2030 05/02/2025 RSV Immunization Adult Patients (1 - 1-dose 75+ series) 2042 HIB Vaccines Aged Out No longer eligi [...] age to complete this topic Meningococcal B Vaccine Aged Out No l onger eligible based on patient's age to complete this topic RSV Immunization Patients Under 20 months Aged Out No longer eligible based on patient's age to complete this topic Varicella Vaccines Aged Out No longer eligible based on patient's age to complete this topic Procedures Procedure Name Priority Date/Time Associated Diagnosis Comments ECG 12-LEAD Routine 06/30/2025 8:48 PM EDT Atrial flutter, unspecified type (CMS/HCC V24, CMS/HCC V28) BASIC METABOLIC PANEL Routine 06/13/2025 7:03 AM EDT Hypertensive heart disease with heart failure (CMS/HCC V24, CMS/HCC V28) Cellulitis of left lower limb LIPID PANEL WITH REFLEX TO DIRECT LDL Add-On 05/02/2025 7:02 AM EDT from Last 3 Months or Most Recently Relevant to Health Maintenance Results * ECG 12 lead (06/30/2025 8:48 PM EDT) Pathologist [facility] Ventricular Rate ECG 57 BPM GEMUSE Atrial Rate 57 BPM GEMUSE P-R Interval 186 ms GEMUSE QRS Duration 130 ms GEMUSE Q-T Interval 460 ms GEMUSE QTc 447 ms GEMUSE P Wave [place] 48 degrees GEMUSE R [place] -27 degrees GEMUSE T [place] -5 degrees GEMUSE ECG Interpretation Sinus bradycardia Left bundle branch block Abnormal ECG When compared with ECG of 01-MAY-2025 13:45, Sinus rhythm has replaced Atrial flutter Vent. rate has decreased BY [address] no longer depressed in Lateral leads T wave inversion more evident in Inferior leads T wave inversion no longer evident in Lateral leads QT has shortened Confirmed by Caio ROA, HAIR ([id number]) on 07/10/2025 1:12:44 PM GEMUSE 06/30/2025 2:05 PM EDT 07/10/2025 1:12 PM EDT Marie Abdi NP ECG ORDERABLES Edite d Result - Final GEMUSE * (ABNORMAL) Basic metabolic panel (06/13/2025 7:03 AM EDT) Pathologist [facility] Sodium 138 133 - 145 mmol/L LAB CHEMISTRY METHOD 06/13/2025 2:05 PM EDT [facility] Potassium 4.6 3.5 - 5.5 mmol/L LAB CHEMISTRY METHOD 06/13/2025 2:05 PM [facility] Chloride 108 96 - 110 mmol/L LAB CHEMISTRY METHOD 06/13/2025 2:05 PM [facility] CO2 20(L) 21 - 32 mmol/L LAB CHEMISTRY METHOD 06/13/2025 2:05 PM [facility] Anion Gap 10 3 - 11 LAB CHEMISTRY METHOD 06/13/2025 2:05 PM [facility] Glucose 69(L) 70 - 100 mg/dL LAB CHEMISTRY METHOD 06/13/2025 2:05 PM [facility] BUN 29(H) 5 - 25 mg/dL LAB CHEMISTRY METHOD 06/13/2025 2:05 PM [facility] Creatinine 0.97 0.70 - 1.30 mg/dL LAB CHEMISTRY METHOD 06/13/2025 2:05 PM [facility] eGFR 90 >=60 mL/min/1. 73m2 LAB CHEMISTRY METHOD 06/13/2025 2:05 PM [facility] Comment:Calculation based on the Chronic Kidney Disease Epidemiology Collaboration (CKD-EPI) equation refit without adjustment for race. BUN/Creatinine Ratio 29.9 LAB CHEMISTRY METHOD 06/13/2025 2:05 PM [facility] Calcium 9.1 8.5 - 10.5 mg/dL LAB CHEMISTRY METHOD 06/13/2025 2:05 PM [facility] Blood Venous blood specimen / Unknown Venipuncture / Unknown 06/13/2025 7:03 AM EDT 06/13/2025 11:08 AM EDT us Johann Zaldivar MD LAB BLOOD ORDERABLES Final Resu lt [facility] [address] [place] [address], [place] [phone] * (ABNORMAL) Lipid panel with reflex to direct LDL (05/02/2025 7:02 AM EDT) Cholesterol 126 0 - 200 mg/dL LAB CHEMISTRY METHOD 05/02/2025 10:37 AM EDT [facility] Triglycerides 128 0 - 150 mg/dL LAB CHEMISTRY METHOD 05/02/2025 10:37 AM EDT [facility] HDL 22(L) >=40 mg/dL LAB CHEMISTRY METHOD 05/02/2025 10:37 AM EDT [facility] LDL Calculated 78 0 - 100 mg/dL LAB CHEMISTRY METHOD 05/02/2025 10:37 AM EDT [facility] VLDL Cholesterol Jigar 25.6 mg/dL LAB CHEMISTRY METHOD 05/02/2025 10:37 AM EDT [facility] Non HDL Chol. (LDL+VLDL) 104 <145 mg/dL LAB CHEMISTRY METHOD 05/02/2025 10:37 AM EDT [facility] Chol/HDL Ratio 5.7(H) 0.0 - 4.4 LAB CHEMISTRY METHOD 05/02/2025 10:37 AM [facility] Blood Venous blood specimen / Unknown Venipuncture / Unknown 05/02/2025 7:02 AM EDT 05/02/2025 7:36 AM EDT Iona MARK LAB BLOOD ORDERABLES Final Result [facility] [address] [place] [address], [place] [phone] from Last 3 Months or Most Recently Relevant to Health Maintenance Insurance [facility] Advance Directives Documents on File Type Date Recorded Patient Color Maker Formulator Expl anation Health Care Decision (hx) 01/31/2024 Anurag Triplett ADVANCE DI RECTIVE * Full Code - Confirmed (Latest Code Status on File) Date Activated Date Inactivated Comments 04/30/2025 6:50 PM 05/07/2025 4:[address] at[facility] was ascertained in the following way: Code status discussion: discussion with patient To update the patient's code status, place a code status order. Do not modify or discontinue any currently active code status orders. * Full Code - Default Date Activated Date Inactivated Comments 04/30/2025 6:25 PM 04/30/2025 6:50 PM This is orde r is used when code status has not been discussed with the patient, or code status is otherwise unknown/unconfirmed To update the patient's code status, place a code status order. Do not modify or discontinue any currently active code status orders. Healthcare Agents on File Name Relationship Healthcare Agent [facility] p Communication Myrtle Triplett [facility]ly [facility] Health Care Agent Anurag Triplett Brother [facility] re Agent
== END 2025-08-25 14:57 | disposition home or self-care (01) ==
LOC: HO.HMCH 13:43
PROVIDERS: PCP Internal Medicine
DX: I10 Essential (primary) hypertension (principal); I50.20 Unspecified systolic (congestive) heart failure; I48.91 Unspecified atrial fibrillation; I87.8 Other specified disorders of veins; L03.119 Cellulitis of unspecified part of limb; S81.801D Unspecified open wound, right lower leg, subsequent encounter

== ENCOUNTER → 2025-08-25 13:43 | Outpatient (BNVA) | payer OTHER, SELFPAY | PROVIDERS: PCP Internal Medicine | DX: I11.0 Hypertensive heart disease with heart failure (principal); I50.20 Unspecified systolic (congestive) heart failure; I48.91 Unspecified atrial fibrillation; R60.0 Localized edema; I87.8 Other specified disorders of veins; L03.115 Cellulitis of right lower limb; S81.801D Unspecified open wound, right lower leg, subsequent encounter; X58.XXXD Exposure to other specified factors, subsequent encounter | CPT/HCPCS: 99212 ==